=== PATIENT | female | born 1935 | race Caucasian/White ===

== ENCOUNTER 2017-01-19 10:12 | Emergency (ER) | payer MEDICARE ==
[2017-01-19] MEDS ORDERED: ASPIRIN CHEW 81 MG TABLET PO STA (10:28)
[2017-01-19] MEDS ORDERED: ASPIRIN CHEW 81 MG TABLET ONE (10:44)
== END 2017-01-19 11:40 | disposition home or self-care (01) ==
DX: R07.89 Other chest pain (principal); K22.4 Dyskinesia of esophagus; N18.9 Chronic kidney disease, unspecified; I48.92 Unspecified atrial flutter; E03.9 Hypothyroidism, unspecified; Z87.11 Personal history of peptic ulcer disease

== ENCOUNTER 2017-01-24 14:10 | Outpatient (CLI) | payer MEDICARE | END 2017-01-24 14:11 | disposition home or self-care (01) | DX: R82.5 Elevated urine levels of drugs, medicaments and biological substances (principal); R30.0 Dysuria ==

== ENCOUNTER 2017-03-04 11:06 | Outpatient (CLI) | payer MEDICARE ==
--- NOTE | 2017-03-04 15:54 | Ultrasound Report ---
EXAM: PELVIC ULTRASOUND EXAM DATE: 03/04/2017 11:53 AM. CLINICAL HISTORY: POSTMENOPAUSAL ABNORMAL BLEEDING. COMPARISON: None. TECHNIQUE: Realtime transabdominal pelvic scan performed to identify the uterus and adnexa and as an overview of other pelvic structures, followed by transvaginal scan to provide greater detail of the u terus and adnexa, with static image documentation. FINDINGS: Uterus: 7.0 x 4.0 x 2.7 cm, volume 40 cc. Anteverted position. Normal overall size and echotexture. Masses: None. Endometrium: 11 mm. Thickened and heterogeneous. Cervix: Unremarkable. Right Ovary: Not confidently identified. No right adnexal mass is seen. Left Ovary: 3.6 x 2.9 x 2.7 cm, volume 15 cc. There is a 2.3 x 1.9 x 1.8 cm simple cyst. Free Fluid: Trace Other: None. IMPRESSION: Thickened, heterogeneous endometrium for a postmenopausal patient. Correlation with endom etrial biopsy is recommended. Simple 2.3 cm left ovarian cyst. [facility] Referring Provider Line: [phone] SITE ID: [id number]
== END 2017-03-04 11:07 | disposition home or self-care (01) ==
LOC: DI 11:06
PROVIDERS: ATTEND Physician Assistant Medical
DX: R93.8 Abnormal findings on diagnostic imaging of other specified body structures (principal); Z78.0 Asymptomatic menopausal state
CPT/HCPCS: 76830; 76856

== ENCOUNTER 2017-06-21 12:11 | Outpatient (CLI) | payer MEDICARE ==
--- NOTE | 2017-06-21 12:58 | XRAY Report ---
TWO-VIEW CHEST: 06/21/2017 CLINICAL INDICATION: Dyspnea. FINDINGS: Frontal and lateral views of the chest demonstrate a mildly enlarged cardiac silhouette. The lungs are clear. No effusion or pneumothorax is present. IMPRESSION: CARDIOMEGALY, BUT NO EVIDENCE OF ACUTE CARDIOPULMONARY DISEASE. JOB #: [id number] EXT JOB #:[id number]
== END 2017-06-21 12:12 | disposition home or self-care (01) ==
LOC: DI 12:11
PROVIDERS: ATTEND Nurse Practitioner Primary Care
DX: R06.00 Dyspnea, unspecified (principal); I51.7 Cardiomegaly
CPT/HCPCS: 71020

== ENCOUNTER 2017-07-19 14:04 | Outpatient (CLI) | payer MEDICARE ==
[2017-07-23 23:01] LABS: TEST RESULT REPORT
== END 2017-07-19 14:05 | disposition home or self-care (01) ==
LOC: LAB 14:04
PROVIDERS: ATTEND Psychiatry & Neurology Neurology
DX: G70.00 Myasthenia gravis without (acute) exacerbation (principal)
CPT/HCPCS: 81599

== ENCOUNTER 2017-09-15 12:48 | Outpatient (CLI) | payer MEDICARE | END 2017-09-15 12:49 | disposition home or self-care (01) | LOC: LAB 12:48 | PROVIDERS: ATTEND Internal Medicine | DX: E03.9 Hypothyroidism, unspecified (principal) | CPT/HCPCS: 36415; 84443 ==

== ENCOUNTER 2017-11-07 11:29 | Outpatient (CLI) | payer MEDICARE | END 2017-11-07 11:30 | disposition home or self-care (01) | LOC: LAB 11:29 | PROVIDERS: ATTEND Internal Medicine | DX: E03.9 Hypothyroidism, unspecified (principal) | CPT/HCPCS: 36415; 84443 ==

== ENCOUNTER 2018-02-06 08:00 | Outpatient (CLI) | payer MEDICARE | END 2018-02-06 08:01 | disposition home or self-care (01) | LOC: LAB.R 08:00 | PROVIDERS: ATTEND Internal Medicine | DX: E03.9 Hypothyroidism, unspecified (principal) | CPT/HCPCS: 84443 ==

== ENCOUNTER 2018-06-15 10:00 | Outpatient (CLI) | payer MEDICARE ==
[2018-06-15 14:20] LABS: BASOPHILS % (AUTO) 0.7 %; EOSINOPHILS % (AUTO) 1.1 %; LYMPHOCYTES % (AUTO) 33.4 %; MEAN CORPUSCULAR HEMOGLOBIN 29.7 pg (27.0-31.0); MEAN CORPUSCULAR HGB CONC 33.9 g/dL (32.0-36.0); MEAN CORPUSCULAR VOLUME 87.8 fL (81.0-99.0); MEAN PLATELET VOLUME 8.9 fL (7.9-10.8); MONOCYTES % (AUTO) 6.2 %; NEUTROPHILS % (AUTO) 58.6 %; PLT - PLATELET COUNT 716 10^3/uL (130-450); RED BLOOD COUNT 3.37 10^6/uL (4.20-5.40); RED CELL DISTRIBUTION WIDTH 35.1 % (12.0-15.0); WHITE BLOOD COUNT 9.6 x10^3/uL (4.8-10.8)
[2018-06-15 14:23] LABS: ABNORMAL LYMPHS % (MANUAL) 0 %; BAND NEUTROPHILS % (MANUAL) 0 %
[2018-06-15 14:27] LABS: ALBUMIN 3.7 g/dL (3.2-5.5); ALBUMIN/GLOBULIN RATIO 1.7 (1.0-2.2); BILIRUBIN,TOTAL 0.8 mg/dL (0.2-1.0); CALCIUM 8.5 mg/dL (8.5-10.3); CREATININE 1.4 mg/dL (0.4-1.0); TOTAL PROTEIN 5.9 g/dL (6.7-8.2)
[2018-06-15 14:38] LABS: BASOPHILS # (MANUAL) 0.1 10^3/uL (0-0.1); BASOPHILS % (MANUAL) 1 %; EOSINOPHILS # (MANUAL) 0.2 10^3/uL (0-0.7); LYMPHOCYTES # (MANUAL) 0.6 10^3/uL (1.5-3.5); LYMPHOCYTES % (MANUAL) 6 %; MONOCYTES # (MANUAL) 1.2 10^3/uL (0.0-1.0); NEUTROPHILS # (MANUAL) 7.5 10^3/uL (1.5-6.6); NEUTROPHILS % (MANUAL) 78 %
[2018-06-15 14:44] LABS: DIFFERENTIAL COMMENT MANUAL DIFFERENTIAL; PLATELET ESTIMATE, MANUAL INCREASED (>450,000) (NORMAL); PLATELET MORPHOLOGY 1+ GIANT PLATELETS (NORMAL)
== END 2018-06-15 10:01 | disposition home or self-care (01) ==
LOC: LAB.R 10:00
PROVIDERS: ATTEND Nurse Practitioner Primary Care
DX: N76.0 Acute vaginitis (principal); K62.5 Hemorrhage of anus and rectum; Z79.899 Other long term (current) drug therapy
CPT/HCPCS: 80053; 85025; 87070; 87181

== ENCOUNTER 2018-08-20 09:09 | Emergency (ER) | payer MEDICARE ==
[2018-08-20 09:33] VITALS: BP 114/50
--- NOTE | 2018-08-20 10:40 | XRAY Report ---
Reason: injury Procedure Date: 08/20/2018 Accession Number: [id number] / [id number] Procedure: XR - Shoulder 3 View RT CPT Code: FULL RESULT: EXAM: RIGHT SHOULDER RADIOGRAPHY EXAM DATE: 08/20/2018 10:14 AM. CLINICAL HISTORY: Injury. COMPARISON: None. TECHNIQUE: 3 views. FINDINGS: Bones: No fracture or bone lesion. Joints: The glenohumeral and acromioclavicular joints are normal. Soft tissues: The visualized hemithorax is unremarkable. No soft tissue swelling. IMPRESSION: No fracture or dislocation of the right shoulder. [facility]
--- NOTE | 2018-08-20 13:33 | ED Physician Documentation ---
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 : None HEENT: Chronic hearing loss Psych: None Musculoskeletal: None Derm: None - Past Surgical History Past Surgical History: No General: Colonoscopy HEENT: Tonsil/Adenoidectomy, Other - Present Medications Home Medications: Ambulatory Orders Medication Instructions Recorded Confirmed Hydroxyurea [Hydrea] 500 mg PO DAILY 04/19/13 07/11/18 Thyroid,Pork [Nature-Throid] 65 mg PO DAILY 04/19/13 07/11/18 Fish Oil/Borage/Flax/Om3,6,9#1 2,000 mg PO DAILY 02/25/15 07/11/18 [[place] 3-6-9 1,200 mg Softgel] Triamterene/Hydrochlorothiazid 1 cap PO DAILY 02/25/15 07/11/18 [Triamterene-Hctz 37.5-25 mg Cp] - Allergies Allergies/Adverse Reactions: Allergies Allergy/AdvReac Type Severity Reaction Status Date / Time No Known Drug Allergies Allergy Verified 08/20/18 09:33 - Social History Does the pt smoke?: No Smoking Status: Never smoker Does the pt drink ETOH?: Yes Does the pt have substance abuse?: No - Immunizations Immunizations are current?: Yes - POLST Patient has POLST: No PD ED PE NORMAL - Vitals Vital signs reviewed: Yes - HEENT HEENT: Atraumatic - Neck Neck: No bony TTP - Cardiac Cardiac: RRR - Respiratory Respiratory: No respiratory distress, Other (no rib TTP) - Extremities Extremities: Other (TTP lateral superior R shoulder s deformity, pain with ROM, MSV intact) Results - Vitals Vitals: Vital Signs - 24 hr 08/20/18 09:21 Temperature 36.4 C L Heart Rate 84 Respiratory 18 Rate Blood Pressure 114/50 L O2 Saturation 98 Oxygen O2 Source Room air - Rads (name of study) shoulder Radiology: See rad report (no acute) PD MEDICAL DECISION MAKING - ED course ED course: pt happy xrays neg and left without dc instructions Departure - Departure Disposition: 01 Home, Self Care Clinical Impression: Shoulder contusion Qualifiers: Encounter type: initial encounter Laterality: right Qualified Code(s): S40.011A - Contusion of right shoulder, initial encounter Condition: Good Instructions: ED Contusion Shoulder Discharge Date/Time: 08/20/18 11:48
== END 2018-08-20 11:48 | disposition home or self-care (01) ==
LOC: ED 09:09
DX: S40.011A Contusion of right shoulder, initial encounter (principal); W01.0XXA Fall on same level from slipping, tripping and stumbling without subsequent striking against object, initial encounter
CPT/HCPCS: 99282

== ENCOUNTER 2018-09-05 09:48 | Outpatient (CLI) | payer MEDICARE | END 2018-09-05 23:59 | disposition home or self-care (01) | LOC: LAB.R 09:48 | PROVIDERS: ATTEND Nurse Practitioner Primary Care | DX: N30.00 Acute cystitis without hematuria (principal); B37.3 Candidiasis of vulva and vagina | CPT/HCPCS: 87086 ==

== ENCOUNTER 2018-09-15 11:45 | Outpatient (CLI) | payer MEDICARE | END 2018-09-15 11:46 | disposition home or self-care (01) | LOC: LAB 11:45 | PROVIDERS: ATTEND Internal Medicine | DX: N30.00 Acute cystitis without hematuria (principal) | CPT/HCPCS: 87086 ==

== ENCOUNTER 2018-10-05 20:36 | Outpatient (CLI) | payer MEDICARE | END 2018-10-05 20:37 | disposition critical access hospital (66) | LOC: EMS 20:36 | PROVIDERS: ATTEND Surgery | DX: R06.02 Shortness of breath (principal) | CPT/HCPCS: A0425; A0427 ==

== ENCOUNTER 2018-10-05 20:50 | Observation (INO) | payer MEDICARE ==
--- NOTE | 2018-10-05 21:01 | ED Physician Documentation ---
PD HPI DYSPNEA - Stated complaint Stated Complaint: SOA - Chief complaint Chief Complaint: Resp - History obtained from History obtained from: Patient - History of Present Illness Timing - onset: How many hours ago (1) Timing - onset during: Rest Timing - details: Abrupt onset (She was sitting at rest at home and had an abrupt onset of feeling of dyspnea, some pain in her back of her neck and lightheadedness. Her significant other took her heart rate and felt that it was going a little bit fast. She went to rest in bed and does wear BiPAP at night and put that on but did not have any improvement in her dyspnea. EMS was called and found the patient to be tachycardic but irregular rhythm and her oxygenation was 95%. She was starting to feel improved however at that time. She is feeling better on route here and does not have any dyspnea on arrival. She had had a couple of episodes during the day today and one yesterday evening of dyspnea without exertion that lasted for 5-15 minutes according to her friend and then resolved. She felt fine interval times. She does have regular pedal edema during the days and this has been no worse than usual. She has not had any cough or cold symptoms.), Now resolved Inciting event(s): No: Out of meds, URI, Exposure (ie smoke) Improved by: Other (seemed to resolve without particular treatment.). No: BiPAP / CPAP Worsened by: No: Laying flat Associated symptoms: Chest pain / discomfort (tightness, with some discomfort in upper back/neck and not anterior chest.), Bilateral edema (mild daily). No: Fever, Cough, Wheezing, Palpitations Similar symptoms before: Has not had sx before Recently [place] [place] 2 [place]; had had dose the week prior as well. Has had these many times in the past without symptoms.) Review of Systems Constitutional: denies: Fever Nose: denies: Rhinorrhea / runny nose, Congestion Throat: denies: Sore throat Cardiac: reports: Pedal edema (mild daily). denies: Chest pain / pressure, Palpitations, Calf pain Respiratory: reports: Dyspnea (episodic). denies: Cough GI: denies: Abdominal Pain, Nausea, Vomiting, Diarrhea : denies: Dysuria, Frequency Musculoskeletal: denies: Extremity pain Neurologic: reports: Generalized weakness. denies: Focal weakness, Numbness, Near syncope, Altered mental status, Headache PD PAST MEDICAL HISTORY - Past Medical History Cardiovascular: Atrial flutter (with ablation about 5 years ago; no recurrent fib since, per patient. 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 - Past Surgical History Past Surgical History: No General: Colonoscopy HEENT: Tonsil/Adenoidectomy, Other - Present Medications Home Medications: Ambulatory Orders Medication Instructions Recorded Confirmed Hydroxyurea [Hydrea] 500 mg PO DAILY 04/19/13 09/27/18 Thyroid,Pork [Nature-Throid] 65 mg PO DAILY 04/19/13 09/27/18 Fish Oil/Borage/Flax/Om3,6,9#1 2,000 mg PO DAILY 02/25/15 09/27/18 [[place] 3-6-9 1,200 mg Softgel] Triamterene/Hydrochlorothiazid 1 cap PO DAILY 02/25/15 09/27/18 [Triamterene-Hctz 37.5-25 mg Cp] Cyanocobalamin (Vitamin B-12) 1,000 mcg 10/05/18 [Vitamin B-12] Digitek 125 mg PO 10/05/18 Fluconazole 150 mg 10/05/18 Hydroxyurea 500 mg 10/05/18 Nitroglycerin 0.4 mg 10/05/18 Thyroid,Pork [[place] Thyroid] 90 mg 10/05/18 - Allergies Allergies/Adverse Reactions: Allergies Allergy/AdvReac Type Severity Reaction Status Date / Time No Known Drug Allergies Allergy Verified 10/05/18 20:58 - Social History Does the pt smoke?: No Smoking Status: Never smoker Does the pt drink ETOH?: Yes Does the pt have substance abuse?: No - Family History Family history: reports: Non contributory - Immunizations Immunizations are current?: Yes - POLST Patient has POLST: No PD ED PE NORMAL - Vitals Vital signs reviewed: Yes - General General: Alert and oriented X 3, No acute distress, Well developed/nourished - HEENT HEENT: Ears normal, Pharynx benign - Neck Neck: Supple, no meningeal sign, No adenopathy, No JVD - Cardiac Cardiac: RRR, No murmur - Respiratory Respiratory: Clear bilaterally - Abdomen Abdomen: Soft, Non tender - Derm Derm: Normal color, Warm and dry - Extremities Extremities: No deformity, No tenderness to palpate, Normal ROM s pain, No calf tenderness / cord, Other (1+ edema in both legs) - Neuro Neuro: Alert and oriented X 3, 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 No: ST elevation c/w ischemia, ST depression Compare to prior EKG: Unchanged from prior EKG - Labs Labs: Laboratory Tests 10/05/18 10/05/18 10/05/18 21:28 21:28 21:28 WBC 5.5 RBC 2.77 L Hgb 9.1 L Hct 26.3 L MCV 94.9 MCH 32.7 H MCHC 34.5 RDW 26.3 H Plt Count 151 MPV 9.1 Neut # (Auto) Not Reportable Lymph # (Auto) Not Reportable [place] # (Auto) Not Reportable Eos # (Auto) Not Reportable Baso # (Auto) Not Reportable Absolute Nucleated RBC Not Reportable Total Counted 100 Band Neuts % (Manual) 1 Abnorm Lymph % (Manual) 0 Blast Cells % 6 H* Nucleated RBC % Not Reportable Neutrophils # (Manual) 2.8 Lymphocytes # (Manual) 0.6 L Monocytes # (Manual) 1.9 H Eosinophils # (Manual) 0.0 Basophils # (Manual) 0.0 Differential Comment MANUAL DIFFERENTIAL Manual Slide Review Indicated WBC Morphology NORMAL APPEARANCE Platelet Estimate NORMAL (130-450,000) Platelet Morphology NORMAL APPEARANCE RBC Morph Micro Appear 1+ SPHEROCYTES D-Dimer Sodium 139 Potassium 3.7 Chloride 102 Carbon Dioxide 27 Anion Gap 10.0 BUN 29 H Creatinine 1.1 H Estimated GFR (MDRD) 47 L Glucose 112 H Calcium 8.8 Magnesium 2.5 Total Bilirubin 0.7 AST 20 ALT 15 Alkaline Phosphatase 51 Troponin I < 0.04 B-Natriuretic Peptide Total Protein 6.5 L Albumin 3.8 Globulin 2.7 Albumin/Globulin Ratio 1.4 Lipase 66 H Last Dose Date Last Dose Time Digoxin Slides for Path Review Indicated 10/05/18 10/05/18 10/05/18 21:28 21:28 21:28 WBC RBC Hgb Hct MCV MCH MCHC RDW Plt Count MPV Neut # (Auto) Lymph # (Auto) [place] # (Auto) Eos # (Auto) Baso # (Auto) Absolute Nucleated RBC Total Counted Band Neuts % (Manual) Abnorm Lymph % (Manual) Blast Cells % Nucleated RBC % Neutrophils # (Manual) Lymphocytes # (Manual) Monocytes # (Manual) Eosinophils # (Manual) Basophils # (Manual) Differential Comment Manual Slide Review WBC Morphology Platelet Estimate Platelet Morphology RBC Morph Micro Appear D-Dimer < 200.0 L Sodium Potassium Chloride Carbon Dioxide Anion Gap BUN Creatinine Estimated GFR (MDRD) Glucose Calcium Magnesium Total Bilirubin AST ALT Alkaline Phosphatase Troponin I B-Natriuretic Peptide 82 Total Protein Albumin Globulin Albumin/Globulin Ratio Lipase Last Dose Date UNKNOWN Last Dose Time UNKNOWN Digoxin 1.1 Slides for Path Review - Rads (name of study) chest xray Radiology: Prelim report reviewed (no acute process), EMP read contemporaneously, See rad report PD MEDICAL DECISION MAKING - ED course Complexity details: reviewed results (Chest x-ray appeared clear. She did have some dyspnea return here with a slight tachycardia but with sinus rhythm to 103 and no EKG changes on a repeat EKG during the symptoms. She did seem to get some improvement either just on its own or with nitroglycerin. She did not feel improvement with oxygen by nasal cannula though her oxygenation only went down to about 92-93%. Consider the possibility of some pulmonary toxicity related to the Rituxan which does list as a soft potential side effect. However I do not hear any wheezing or crackles. At this point I think heart related is not fully excluded and would asked that she be in the hospital for rule out OH. Referencing up-to-date, there was some suggestion of steroid use if there is some pulmonary inflammation related to the chemo and I could give her a dose of Decadron here. Her d-dimer and initial troponin and BNP are all negative. I talked with the hospitalist who will come and evaluate the patient.), re- evaluated patient, considered differential (Concern for lung related such as pneumonia chronic congestive failure, fluid. Also worried about heart related given abrupt dyspnea with some upper back pain and an older woman that could be atypical presentation for OH. She could have had intermittent dysrhythmia with associated symptoms so we will have her on the heart monitor. Also consider blood clots and can screen with a d-dimer.) Departure - Departure Disposition: ED Place in Observation Clinical Impression: Chest discomfort, Chest pain, rule out acute myocardial infarction Dyspnea Qualifiers: Dyspnea type: shortness of breath Qualified Code(s): R06.02 - Shortness of breath Condition: Stable Record reviewed to determine appropriate education?: Yes
[2018-10-05 21:58] LABS: BASOPHILS % (AUTO) 0.6 %; EOSINOPHILS % (AUTO) 0.7 %; HGB - HEMOGLOBIN 9.1 g/dL (12.0-16.0); LYMPHOCYTES % (AUTO) 20.3 %; MEAN CORPUSCULAR HEMOGLOBIN 32.7 pg (27.0-31.0); MEAN CORPUSCULAR HGB CONC 34.5 g/dL (32.0-36.0); MEAN CORPUSCULAR VOLUME 94.9 fL (81.0-99.0); MEAN PLATELET VOLUME 9.1 fL (7.9-10.8); MONOCYTES % (AUTO) 28.9 %; NEUTROPHILS % (AUTO) 49.5 %; PLT - PLATELET COUNT 151 10^3/uL (130-450); RED BLOOD COUNT 2.77 10^6/uL (4.20-5.40); RED CELL DISTRIBUTION WIDTH 26.3 % (12.0-15.0); WHITE BLOOD COUNT 5.5 x10^3/uL (4.8-10.8)
[2018-10-05 21:59] LABS: ALBUMIN 3.8 g/dL (3.2-5.5); ALBUMIN/GLOBULIN RATIO 1.4 (1.0-2.2); BILIRUBIN,TOTAL 0.7 mg/dL (0.2-1.0); CALCIUM 8.8 mg/dL (8.5-10.3); CREATININE 1.1 mg/dL (0.4-1.0); MAGNESIUM 2.5 mg/dL (1.7-2.8); TOTAL PROTEIN 6.5 g/dL (6.7-8.2)
[2018-10-05 22:02] LABS: ABNORMAL LYMPHS % (MANUAL) 0 %
[2018-10-05] MEDS ORDERED: NITROGLYCERIN SL 0.4 MG TABLET SL STA (22:03)
[2018-10-05 22:23] LABS: DIGOXIN 1.1 ng/mL
[2018-10-05 22:41] LABS: BAND NEUTROPHILS % (MANUAL) 1 %; LYMPHOCYTES # (MANUAL) 0.6 10^3/uL (1.5-3.5); LYMPHOCYTES % (MANUAL) 10 %; MONOCYTES # (MANUAL) 1.9 10^3/uL (0.0-1.0); NEUTROPHILS # (MANUAL) 2.8 10^3/uL (1.5-6.6); NEUTROPHILS % (MANUAL) 49 %
[2018-10-05 22:45] LABS: DIFFERENTIAL COMMENT MANUAL DIFFERENTIAL; PLATELET ESTIMATE, MANUAL NORMAL (130-450,000) (NORMAL); PLATELET MORPHOLOGY NORMAL APPEARANCE (NORMAL)
--- NOTE | 2018-10-05 22:56 | XRAY Report ---
Reason: dyspnea this evening Procedure Date: 10/05/2018 Accession Number: [id number] / [id number] Procedure: XR - Chest 1 View X-Ray CPT Code: 72626 FULL RESULT: EXAM: CHEST RADIOGRAPHY EXAM DATE: 10/05/2018 10:39 PM. CLINICAL HISTORY: Dyspnea this evening. COMPARISON: CHEST 2 VIEW PA/LAT 06/21/2017 12:14 PM. TECHNIQUE: 1 view. FINDINGS: Lungs/Pleura: Scattered mild linear opacities at the right base likely reflects atelectasis. No pneumothorax. No dense confluent consolidation. No pulmonary edema. Mediastinum: Borderline enlarged cardiac silhouette is stable. Other: Redemonstration of elevation of the left hemidiaphragm. IMPRESSION: No acute radiographic pulmonary abnormalities aside from mild right base atelectasis. [facility]
[2018-10-05] MEDS ORDERED: DEXAMETHASONE 10 MG/ML VIAL IVP STA (23:10)
[2018-10-05] MEDS ORDERED: ONDANSETRON 4 MG/2 ML VIAL IVP PRN (23:38)
[2018-10-05] MEDS ORDERED: LEVALBUTEROL 1.25 MG/3 ML NEB INH PRN (23:38)
[2018-10-05] MEDS ORDERED: MORPHINE 2 MG/ML CARPUJECT IVP PRN (23:38)
[2018-10-05] MEDS ORDERED: SODIUM CHLORIDE FLUSH 0.9% 10 ML SYRINGE IVP PRN (23:38)
[2018-10-05] MEDS ORDERED: ZOLPIDEM 5 MG TABLET PO PRN (23:38)
[2018-10-05] MEDS ORDERED: ACETAMINOPHEN 325 MG TABLET PO PRN (23:38)
[2018-10-05] MEDS ORDERED: PROCHLORPERAZINE 10 MG/2 ML VIAL IVP PRN (23:38)
[2018-10-05] MEDS ORDERED: ACETAMINOPHEN 325 MG TABLET PO STA (23:38)
[2018-10-05] MEDS ORDERED: HYDROcod/ACETAM 5/325 MG TABLET PO PRN (23:38)
--- NOTE | 2018-10-05 23:52 | HISTORY & PHYSICAL EXAMINATION ---
Chief Complaint - Chief Complaint Chief Complaint: Shortness of breath History of Present Illness - Admitted From Admitted From:: Emergency department - History Obtained From Records Reviewed: Emergency department records History obtained from: Patient, and Dr. Lorenzo, ED physician Exam Limitations: None - History of Present Illness HPI Comment/Other: Patient is an 83-year-old female with a past medical history significant for atrial fibrillation, myasthenia gravis, thyroid resection on replacement, who has no other known coronary artery disease history or pulmonary disease history and presents with relatively sudden onset of shortness of breath earlier this evening. She does however admit that this has been happening on and off for the last few nights, in similar fashion to tonight which is after she went to bed, she laid down and without any known provocation suddenly became short of breath. She does however recall in retrospect that for the past 1 year she has had a slow and gradual shortness of breath with exertion but nothing like the last few days. She denies any previous history of lung disease, pulmonary embolus, asthma. She did smoke for about 40 years but has not smoked in at least 15 years. She does not have any exposure to secondhand smoke. She denies any infectious symptoms such as cough, purulent mucus, fever, known sick contacts or recent travel. She denies any PE risk factors such as current smoking, estrogen replacement, prolonged immobilization or history of clotting disorders. Dr. Lorenzo ED physician requested I place the patient in observation to rule out acute PA because the patient had apparently told him that he has pain in the left upper back radiating to the left arm. By the time I met with the patient to ask her about this she denies any upper back pain at all and states the only pain she is having is her low back pain which is chronic and a headache which is not unusual for her. She specifically denies any chest pain, neck pain, jaw pain, or radicular arm pain.Next Her initial troponin is negative, she is in sinus rhythm on principal engineer, and her EKG shows no ischemic changes. She is saturating in the mid to high 90s on 2 L of oxygen and was apparently satting in the low 90s on room air upon presentation to the emergency room. Chest x-ray is unremarkable. Her labs are relatively unremarkable with the exception of chronic anemia but she continues to be short of breath. History - Past Medical History Cardiovascular: reports: Atrial fibrillation (with ablation about 5 years ago; no recurrent fib since, per patient. 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 - Past Surgical History General: reports: Colonoscopy HEENT: reports: Tonsil/Adenoidectomy, Other - Family & Social History Family History: Father: CAD Living arrangement: At home Living Situation: Alone Social History [place]: [place] night by an elderly gentleman who appears to be her spouse but he is not. When asked relationship, they smile and simply states that he has a long- term friend who is visiting and is willing to stay with her as long as necessary to make sure she is well enough for him to return home. - Substance History Use: Uses substance without health or social issues: NONE - POLST Patient has POLST: No POLST Status: Full Code Meds/Allgy - Home Medications Home Medications: Ambulatory Orders Medication Instructions Recorded Confirmed Hydroxyurea [Hydrea] 500 mg PO DAILY 04/19/13 09/27/18 Thyroid,Pork [Nature-Throid] 65 mg PO DAILY 04/19/13 09/27/18 Fish Oil/Borage/Flax/Om3,6,9#1 2,000 mg PO DAILY 02/25/15 09/27/18 [[place] 3-6-9 1,200 mg Softgel] Triamterene/Hydrochlorothiazid 1 cap PO DAILY 02/25/15 09/27/18 [Triamterene-Hctz 37.5-25 mg Cp] Cyanocobalamin (Vitamin B-12) 1,000 mcg 10/05/18 [Vitamin B-12] Digitek 125 mg PO 10/05/18 Fluconazole 150 mg 10/05/18 Hydroxyurea 500 mg 10/05/18 Nitroglycerin 0.4 mg 10/05/18 Thyroid,Pork [[place] Thyroid] 90 mg 10/05/18 - Allergies Allergies/Adverse Reactions: Allergies Allergy/AdvReac Type Severity Reaction Status Date / Time No Known Drug Allergies Allergy Verified 10/05/18 20:58 Review of Systems - Constitutional Constitutional: reports: Fatigue. denies: Fever, Chills - Cardiovascular Cariovascular: reports: Decr. exercise tolerance. denies: Irregular heart rate, Palpitations, Chest pain, Lightheadedness - Respiratory Respiratory: reports: Orthopnea, SOB at rest, SOB with exertion. denies: Cough, Sputum production, Wheezing - Gastrointestinal Gastrointestinal: denies: Abdominal pain - Genitourinary Genitourinary: denies: Dysuria - Musculoskeletal Musculoskeletal: reports: Back pain - Neurological Neurological: reports: Headache - All Other Systems All Other Systems: reports: Reviewed and negative Prior Level of Functionality: Independent Exam - Vital Signs Reviewed Vital Signs: Yes Vital Signs: Vital Signs x48h Temp Pulse Resp BP Pulse Ox 10/05/18 22:56 98 23 126/43 L 97 10/05/18 20:53 37.7 C H 107 H 24 140/70 H 95 - Physical Exam General Appearance: positive: No acute distress, Mild distress Eyes Bilateral: positive: Normal inspection ENT: positive: ENT inspection nml Neck: positive: Nml inspection, Other (Surgical incisional scar consistent with Thyroidectomy). negative: Thyromegaly Respiratory: positive: Chest non-tender, Breath sounds nml, Other (Mild tachypnea). negative: No respiratory distress, Wheezes, Rales, Rhonchi Cardiovascular: positive: Regular rate & rhythm, No murmur, No gallop Peripheral Pulses: positive: 2+ Abdomen: positive: Non-tender, No organomegaly, Nml bowel sounds Skin: positive: Color nml Extremities: positive: Nml appearance, No pedal edema Neurologic/Psychiatric: positive: Oriented x3, CN's nml (2-12), Motor nml, Depressed mood/affect Sepsis Event Note (H) - Evaluation Current Stage of Sepsis: Ruled out Conclusion/Plan - Problem List (1) Shortness of breath Conclusion/Plan: Given her normal chest x-ray, labs, including white count and cardiac enzymes, as well as her oxygen saturation and exam findings, I do not have a definitive etiology for her shortness of breath. Her d-dimer makes pulmonary embolus much less likely as does her oxygen saturation. Given the progressive nature of this shortness of breath over the year, and the onset that occurs at night when she lays in bed, and her history of atrial fibrillation or atrial flutter and hi story of ablation, I am suspicious for possible cardiomyopathy or CHF so I will obtain an echocardiogram in the morning. In the meantime, I will try a bronchodilator treatment though it is unclear if this will be effective. We will continue to monitor patient overnight, and pending results possibly may be discharged in 1-2 days. (2) Paroxysmal atrial fibrillation Conclusion/Plan: Patient is in sinus rhythm and rate controlled. Once her dose of digoxin can be confirmed we will resume her home medication. (3) History of myasthenia gravis Conclusion/Plan: She is on Rituxan injections for this and just had one injection 2 weeks ago, it is unclear if this is related. This does not appear to be in exacerbation of myasthenia gravis as she does not complain of weakness in the episodes of shortness of breath appeared to be brief and somewhat fleeting. We will continue to monitor closely as above (4) Paroxysmal atrial flutter Conclusion/Plan: As above, currently sinus rhythm and rate controlled (5) Status post thyroidectomy Conclusion/Plan: Patient has not had a TSH in some time, it is unlikely that this would directly contribute to her shortness of breath without other findings of myxedema however we will check a TSH with morning labs And otherwise continue home medication in the meantime. - Lab Results Lab results reviewed: Yes Brian Bones: 10/05/18 21:28 10/05/18 21:28 - Diagnostic Imaging Results Diagnostic Imaging Results: positive: Prelim report reviewed - EKG Results EKG Interpreted Independently: Yes EKG Comparison: Old EKG unavailable Core Measures - Anticipated LOS I expect patient to be DC'd or transferred within 96 hours.: Yes - DVT/VTE - Prophylaxis VTE/DVT Device ordered at admit?: Yes
[2018-10-06] MEDS: SODIUM CHLORIDE FLUSH 0.9% 10 ML SYRINGE IVP SCH ×2 (01:54→08:09)
[2018-10-06 06:54] LABS: CALCIUM 8.7 mg/dL (8.5-10.3); CREATININE 1.1 mg/dL (0.4-1.0)
[2018-10-06] MEDS ORDERED: NITROGLYCERIN SL 0.4 MG TABLET SL PRN (07:11)
[2018-10-06] MEDS ORDERED: FLUCONAZOLE 150 MG PO SCH (07:15)
[2018-10-06 07:16] LABS: HGB - HEMOGLOBIN 9.1 g/dL (12.0-16.0); MEAN CORPUSCULAR HEMOGLOBIN 32.1 pg (27.0-31.0); MEAN CORPUSCULAR VOLUME 97.4 fL (81.0-99.0); MEAN PLATELET VOLUME 9.1 fL (7.9-10.8); RED BLOOD COUNT 2.83 10^6/uL (4.20-5.40); RED CELL DISTRIBUTION WIDTH 26.4 % (12.0-15.0); WHITE BLOOD COUNT 4.2 x10^3/uL (4.8-10.8)
[2018-10-06] MEDS ORDERED: HYDROXYUREA 500 MG CAPSULE PO SCH (09:00)
[2018-10-06] MEDS ORDERED: POLYETHYLENE GLYCOL 3350 17 GM PACKET PO SCH (09:00)
[2018-10-06] MEDS ORDERED: OMEGA-3 ACID ETHYL ESTERS 1 GM CAPSULE PO SCH (09:00)
[2018-10-06] MEDS ORDERED: TRIAMT/HCTZ 37.5 MG/25 MG CAPSULE PO SCH (09:00)
[2018-10-06] MEDS ORDERED: ENOXAPARIN 40 MG/0.4 ML SYRINGE SUBQ SCH (09:00)
[2018-10-06] MEDS ORDERED: FAMOTIDINE 20 MG TABLET PO SCH (09:00)
[2018-10-06] MEDS ORDERED: ENOXAPARIN 30 MG/0.3 ML SYRINGE SUBQ SCH (09:00)
[2018-10-06] MEDS ORDERED: THYROID 60 MG TABLET PO SCH (11:00)
[2018-10-06 11:30] VITALS: BP 105/68
--- NOTE | 2018-10-06 12:33 | Discharge Plan ---
Discharge Plan Disposition: 01 Home, Self Care Condition: Poor Diet: Regular Activity Restrictions: Activity as Tolerated Shower Restrictions: No (fall precaution) Instruction Topics: Shortness of Breath Control Stress, ED Chest Pain Noncardiac Ch Additional Instructions or Follow Up instructions: you may followup your PCP in one week. Your tests including ECHO, troponin and D-dimer are unremarkable. Should your symptoms return or worsen, you may present ER or call 911 or call your PCP for help. No Smoking: If you smoke, Please STOP! Call for help. Follow-up with: Ardne Jones MD [Primary Care Provider] -
--- NOTE | 2018-10-06 13:08 | DISCHARGE SUMMARY ---
Discharge Summary Discharge Date: 10/06/18 Discharging Provider: WATSON Primary Care Provider: Arden Chandler Condition at Discharge: Stable Discharge Disposition: Home, Self Care Discharge Facility Name: home - DIAGNOSES Admission Diagnoses: (1) Shortness of breath (2) Paroxysmal atrial fibrillation (3) History of myasthenia gravis (4) Paroxysmal atrial flutter (5) Status post thyroidectomy Discharge Diagnoses with Status of Each Condition: (1) Shortness of breath pt report her SOB was resolved when I assessed pt in the morning. pt report she had over year chronic SOB. pt also state she used BiPAP at home for over 5-6 yrs, she followup her pulomonologist at regularly. her D-dimer is less than 200. Pt declined to have CTA of chest due to her reduced kidney function. unfortunately we did not have V/Q scan at hospital in weekend. Pt choose to d/c home. Discuss with pt, should her symptoms return or worsen, present ER or call 911 for help, pt state she will if needed. Likely pt's SOB is related with her myasthenia gravis. Discussed all pt's test result with pt, and answer all her questions. pt's ECHO, serial troponin and D-dimer studies are unremarkable. RT had O2 desat study, pt did not qualify for home O2. pt had O2 sat 92% with room air when she ambulates per RT report. discuss with pt about this finding. pt is comfortably breathing without distress. (2) Paroxysmal atrial fibrillation/Paroxysmal atrial flutter stable, SR, resume home meds digoxin (3) History of myasthenia gravis pt report she followup neurologist in to treat. recommend pt followup closely to assess if her SOB is related with her MG (5) Status post thyroidectomy pt denies palpitation, hot intolerance. pt is stable, followup PCP for pino espinosa. - HPI History of Present Illness: refer from Dr. Newell's HPI for pt as the following: Patient is an 83-year-old female with a past medical history significant for atrial fibrillation, myasthenia gravis, thyroid resection on replacement, who has no other known coronary artery disease history or pulmonary disease history and presents with relatively sudden onset of shortness of breath earlier this evening. She does however admit that this has been happening on and off for the last few nights, in similar fashion to tonight which is after she went to bed, she laid down and without any known provocation suddenly became short of breath. She does however recall in retrospect that for the past 1 year she has had a slow and gradual shortness of breath with exertion but nothing like the last few days. She denies any previous history of lung disease, pulmonary embolus, asthma. She did smoke for about 40 years but has not smoked in at least 15 years. She does not have any exposure to secondhand smoke. She denies any infectious symptoms such as cough, purulent mucus, fever, known sick contacts or recent travel. She denies any PE risk factors such as current smoking, estrogen replacement, prolonged immobilization or history of clotting disorders. Dr. Lorenzo ED physician requested I place the patient in observation to rule out acute OK because the patient had apparently told him that he has pain in the left upper back radiating to the left arm. By the time I met with the patient to ask her about this she denies any upper back pain at all and states the only pain she is having is her low back pain which is chronic and a headache which is not unusual for her. She specifically denies any chest pain, neck pain, jaw pain, or radicular arm pain.Next Her initial troponin is negative, she is in sinus rhythm on nuclear monitoring technician, and her EKG shows no ischemic changes. She is saturating in the mid to high 90s on 2 L of oxygen and was apparently satting in the low 90s on room air upon presentation to the emergency room. Chest x-ray is unremarkable. Her labs are relatively unremarkable with the exception of chronic anemia but she continues to be short of breath. - HOSPITAL COURSE Hospital Course: pt was admitted of SOB. pt report her SOB was resolved when I assessed pt in the morning. discuss with pt about the possibility if she has PE. pt report she had over year chronic SOB. D-dimer is less than 200. she decline to have contrast of CT of chest to R/O PE because of her reduced kidney function. We do not have V/Q scan at weekend in this hospital. pt report she has bee SOB for over year. Likely pt's SOB is related with her myasthenia gravis. recommend pt followup her neurologist closely to assess if her SOB is related with her MG. Also discuss with pt, should your symptoms return or worsen, you may present ER or call 911 or call your PCP for help. - ALLERGIES Allergies/Adverse Reactions: Allergies Allergy/AdvReac Type Severity Reaction Status Date / Time No Known Drug Allergies Allergy Verified 10/05/18 20:58 - MEDICATIONS Home Medications: Ambulatory Orders Medication Instructions Recorded Confirmed Hydroxyurea [Hydrea] 500 mg PO SUMOTUWETHSA 04/19/13 10/06/18 Triamterene/Hydrochlorothiazid 1 cap PO DAILY 02/25/15 10/06/18 [Triamterene-Hctz 37.5-25 mg Cp] Digoxin [Lanoxin] 125 mcg PO QPM 10/05/18 10/06/18 Nitroglycerin 0.4 mg SL Q5M PRN 10/05/18 10/06/18 Thyroid,Pork [[place] Thyroid] 90 mg PO DAILY 10/05/18 10/06/18 Cyanocobalamin (Vitamin B-12) 1,000 mcg IM Q28D 10/06/18 10/06/18 [Cyanocobalamin Injection] [place]-3 Fatty Acids/Fish Oil 1,000 mg PO DAILY 10/06/18 10/06/18 [[place]-3 Fish Oil 1,000 mg Sfgl] - PHYSICAL EXAM AT DISCHARGE General Appearance: positive: No acute distress, Alert. negative: Lethargic Eyes Bilateral: positive: Normal inspection, PERRL, No lid inflammation, Conjunctivae nml ENT: positive: ENT inspection nml, Pharynx nml, No signs of dehydration. negative: Purulent nasal drainage, Pharyngeal erythema, Oral lesions Neck: positive: Nml inspection, Thyroid nml, No JVD, Trachea midline. negative: Thyromegaly, Lymphadenopathy (R), Lymphadenopathy (L), Stiff neck, Swelling/bruising, Tracheal deviation Respiratory: positive: Chest non-tender, No respiratory distress, Breath sounds nml. negative: Wheezes, Rales, Rhonchi Cardiovascular: positive: Regular rate & rhythm, No murmur, No gallop. negative: Irregularly irregular, Extrasystoles, Tachycardia, Bradycardia, JVD present, Systolic murmur, Diastolic murmur Peripheral Pulses: positive: 2+ Abdomen: positive: Non-tender, No organomegaly, Nml bowel sounds, No distention. negative: Tenderness, Guarding, Rebound Back: positive: Nml inspection. negative: CVA tenderness (R), CVA tenderness (L) Skin: positive: Color nml, No rash, Warm, Dry. negative: Cyanosis, Diaphoresis, Pallor Extremities: positive: Non-tender, Full ROM, Nml appearance. negative: Calf tenderness, Joint swelling, Susie's sign/cords Neurologic/Psychiatric: positive: Oriented x3, Motor nml, Sensation nml, Mood/affect nml. negative: Weakness, Sensory loss, Facial droop, Slurred/abnml speech, Depressed mood/affect - LABS Result Diagrams: 10/06/18 06:34 10/06/18 06:34 - SEPSIS Current Stage of Sepsis: Ruled out - FOLLOW UP Follow Up: you may followup your PCP in one week. You may followup your intensivist for sleep study, neurologist for myasthenia gravis study as out-pt. Your tests including ECHO, troponin and D-dimer are unremarkable. Should your symptoms return or worsen, you may present ER or call 911 or call your PCP for help. - TIME SPENT Time Spent in Discharge (Minutes): 60
== END 2018-10-06 14:05 | disposition home or self-care (01) ==
LOC: EDUNIT# → ED 20:50 → OBS 23:38
PROVIDERS: ADMIT Family Medicine Sports Medicine; ATTEND Nurse Practitioner Gerontology
DX: R06.02 Shortness of breath (principal); I48.0 Paroxysmal atrial fibrillation; G70.00 Myasthenia gravis without (acute) exacerbation; I48.92 Unspecified atrial flutter; D64.9 Anemia, unspecified; G89.29 Other chronic pain; M54.5 Low back pain; E89.0 Postprocedural hypothyroidism; H91.90 Unspecified hearing loss, unspecified ear; Z79.899 Other long term (current) drug therapy; Z87.891 Personal history of nicotine dependence; Z86.79 Personal history of other diseases of the circulatory system
CPT/HCPCS: 36415; 71045; 80048; 80053; 80162; 83690; 83735; 83880; 84484; 85025; 85027; 85379; 93005; 93306; 96372; 96374; 99284; A9270; G0378; J1650

== ENCOUNTER 2018-10-21 19:26 | Outpatient (CLI) | payer MEDICARE | END 2018-10-21 19:27 | disposition critical access hospital (66) | LOC: EMS 19:26 | PROVIDERS: ATTEND Surgery | DX: R06.02 Shortness of breath (principal); R15.9 Full incontinence of feces | CPT/HCPCS: A0425; A0427 ==

== ENCOUNTER 2018-10-21 19:42 | Emergency (ER) | payer MEDICARE ==
[2018-10-21] MEDS ORDERED: ASPIRIN CHEW 81 MG TABLET PO STA (20:20)
[2018-10-21] MEDS ORDERED: IPRATROPIUM/ALBUTEROL 3 ML NEB INH STA (20:22)
[2018-10-21 20:40] LABS: EOSINOPHILS % (AUTO) 0.2 %; HGB - HEMOGLOBIN 8.5 g/dL (12.0-16.0); LYMPHOCYTES % (AUTO) 16.7 %; MEAN CORPUSCULAR HEMOGLOBIN 32.1 pg (27.0-31.0); MEAN CORPUSCULAR HGB CONC 33.4 g/dL (32.0-36.0); MEAN CORPUSCULAR VOLUME 96.1 fL (81.0-99.0); MEAN PLATELET VOLUME 10.1 fL (7.9-10.8); MONOCYTES % (AUTO) 59.9 %; NEUTROPHILS % (AUTO) 23.2 %; PLT - PLATELET COUNT 114 10^3/uL (130-450); RED BLOOD COUNT 2.64 10^6/uL (4.20-5.40); RED CELL DISTRIBUTION WIDTH 25.4 % (12.0-15.0); WHITE BLOOD COUNT 4.2 x10^3/uL (4.8-10.8)
[2018-10-21 20:45] LABS: ABNORMAL LYMPHS % (MANUAL) 0 %; BAND NEUTROPHILS % (MANUAL) 0 %
[2018-10-21 20:51] LABS: ALBUMIN 3.9 g/dL (3.2-5.5); ALBUMIN/GLOBULIN RATIO 1.4 (1.0-2.2); BILIRUBIN,TOTAL 0.9 mg/dL (0.2-1.0); CALCIUM 9.1 mg/dL (8.5-10.3); TOTAL PROTEIN 6.6 g/dL (6.7-8.2)
[2018-10-21 20:53] LABS: DIGOXIN 0.6 ng/mL
[2018-10-21 20:59] LABS: LYMPHOCYTES # (MANUAL) 0.3 10^3/uL (1.5-3.5); LYMPHOCYTES % (MANUAL) 7 %; MONOCYTES # (MANUAL) 2.1 10^3/uL (0.0-1.0); NEUTROPHILS # (MANUAL) 1.8 10^3/uL (1.5-6.6); NEUTROPHILS % (MANUAL) 42 %; PLATELET MORPHOLOGY RARE GIANT PLATELETS (NORMAL)
[2018-10-21 21:00] LABS: DIFFERENTIAL COMMENT MANUAL DIFFERENTIAL; PLATELET ESTIMATE, MANUAL DECREASED (<130,000) (NORMAL)
--- NOTE | 2018-10-21 21:36 | XRAY Report ---
Reason: SOA Procedure Date: 10/21/2018 Accession Number: [id number] / [id number] Procedure: XR - Chest 2 View X-Ray CPT Code: 19574 FULL RESULT: EXAM: CHEST RADIOGRAPHY EXAM DATE: 10/21/2018 08:56 PM. CLINICAL HISTORY: Dyspnea COMPARISON: CHEST 1 VIEW 10/05/2018 10:14 PM. TECHNIQUE: 2 views. FINDINGS: Lungs/Pleura: There is opacity within the right lung base. There is costophrenic sulcus blunting. There is no evidence of pneumothorax. Mediastinum: There is cardiomegaly. There is thoracic aortic calcification. Other: None. IMPRESSION: 1. There is cardiomegaly. 2. There is increased opacity within the right lung base. This could represent infiltrate. 3. Costophrenic sulcus blunting is suspicious for small effusions. 4. There is no evidence of pneumothorax. RADIA
[2018-10-21] MEDS ORDERED: AZITHROMYCIN 250 MG TABLET PO STA (21:54)
[2018-10-21 22:02] VITALS: BP 104/54
--- NOTE | 2018-10-21 22:09 | ED Physician Documentation ---
PD HPI DYSPNEA - Stated complaint Stated Complaint: SOA - Chief complaint Chief Complaint: Resp - History obtained from History obtained from: Patient - History of Present Illness Timing - onset: How many hours ago (1) Timing - onset during: Other (Laying down) Timing - duration: Minutes (30) Timing - details: Abrupt onset Pain level max: 0 Pain level now: 0 Inciting event(s): Other (Laying down) Improved by: O2, Inhaler/neb Worsened by: Laying flat Associated symptoms: No: Fever, Cough, Hemoptysis, Chest pain / discomfort Similar symptoms before: Other (Admitted 2 weeks ago for chest pain ruleout) - Additional information Additional information: 83-year-old female with history of myasthenia gravis on rituximab presents with dyspnea when laying flat. Patient states that she has significant relief with supplemental oxygen. Review of Systems Constitutional: reports: Reviewed and negative Eyes: reports: Reviewed and negative Ears: reports: Reviewed and negative Nose: reports: Reviewed and negative Throat: reports: Reviewed and negative Cardiac: reports: Reviewed and negative Respiratory: reports: Reviewed and negative GI: reports: Reviewed and negative : reports: Reviewed and negative Skin: reports: Reviewed and negative Musculoskeletal: reports: Reviewed and negative Neurologic: reports: Reviewed and negative Psychiatric: reports: Reviewed and negative Endocrine: reports: Reviewed and negative Immunocompromised: reports: Reviewed and negative PD PAST MEDICAL HISTORY - Past Medical History Cardiovascular: Atrial fibrillation, Other Respiratory: Shortness of breath Neuro: None Endocrine/Autoimmune: HyPOthyroidism GI: Ulcers HOME HEALTH CAREGIVER: None : None HEENT: Chronic hearing loss Psych: None Musculoskeletal: None Derm: None - Past Surgical History Past Surgical History: No General: Colonoscopy HEENT: Tonsil/Adenoidectomy, Other - Present Medications Home Medications: Ambulatory Orders Medication Instructions Recorded Confirmed Hydroxyurea [Hydrea] 500 mg PO SUMOTUWETHSA 04/19/13 10/21/18 Triamterene/Hydrochlorothiazid 1 cap PO DAILY 02/25/15 10/21/18 [Triamterene-Hctz 37.5-25 mg Cp] Digoxin [Lanoxin] 125 mcg PO QPM 10/05/18 10/21/18 Nitroglycerin 0.4 mg SL Q5M PRN 10/05/18 10/21/18 Thyroid,Pork [[place] Thyroid] 90 mg PO DAILY 10/05/18 10/21/18 Cyanocobalamin (Vitamin B-12) 1,000 mcg IM Q28D 10/06/18 10/21/18 [Cyanocobalamin Injection] [place] [employer]-3 Fatty Acids/Fish Oil 1,000 mg PO DAILY 10/06/18 10/21/18 [[place] [employer] Fish Oil 1,000 mg Sfgl] Albuterol Sulfate [Proair 90 mcg IH Q4HR PRN #1 aer.pow.[email or web address] 10/21/18 Respiclick] Azithromycin [Zithromax] 0 mg PO DAILY #6 tablet 10/21/18 Cefdinir 300 mg PO BID #14 capsule 10/21/18 - Allergies Allergies/Adverse Reactions: Allergies Allergy/AdvReac Type Severity Reaction Status Date / Time No Known Drug Allergies Allergy Verified 10/21/18 19:52 - Living Situation Living Situation: reports: Alone Living Arrangement: reports: At home - Social History Does the pt smoke?: No Smoking Status: Never smoker Does the pt drink ETOH?: Yes Does the pt have substance abuse?: No - Family History Family history: reports: Other (Reviewed and not pertinent) - Immunizations Immunizations are current?: Yes - POLST Patient has POLST: No POLST Status: Full Code PD ED PE NORMAL - Vitals Vital signs reviewed: Yes - General General: Alert and oriented X 3, No acute distress - HEENT HEENT: PERRL - Neck Neck: Supple, no meningeal sign - Cardiac Cardiac: RRR, No murmur - Respiratory Respiratory: Other (Expiratory wheezes bilaterally) - Abdomen Abdomen: Normal bowel sounds, Soft, Non tender, Non distended - Derm Derm: Warm and dry - Extremities Extremities: No deformity - Neuro Neuro: Alert and oriented X 3 - Psych Psych: Normal mood, Normal affect Results - Vitals Vitals: Vital Signs - 24 hr 10/21/18 10/21/18 10/21/18 19:46 19:53 20:39 Temperature 36.5 C Heart Rate 118 H 121 H 104 H Respiratory 22 20 20 Rate Blood Pressure 141/75 H 132/68 H O2 Saturation 95 95 100 10/21/18 10/21/18 21:44 22:02 Temperature Heart Rate 109 H 109 H Respiratory 18 20 Rate Blood Pressure 125/58 L 104/54 L O2 Saturation 95 95 Oxygen O2 Source Room air - EKG (time done) 2027 Rate: Rate (enter#) (112) Rhythm: Sinus tachycardia [place]: Normal Intervals: Normal VT QRS: Normal Ischemia: Normal ST segments. No: T wave inversion - Labs Labs: Laboratory Tests 10/21/18 10/21/18 10/21/18 20:30 20:30 20:30 WBC 4.2 L RBC 2.64 L Hgb 8.5 L Hct 25.3 L MCV 96.1 MCH 32.1 H MCHC 33.4 RDW 25.4 H Plt Count 114 L MPV 10.1 Neut # (Auto) Not Reportable Lymph # (Auto) Not Reportable Clarke # (Auto) Not Reportable Eos # (Auto) Not Reportable Baso # (Auto) Not Reportable Absolute Nucleated RBC Not Reportable Total Counted 100 Band Neuts % (Manual) 0 Abnorm Lymph % (Manual) 0 Nucleated RBC % Not Reportable Neutrophils # (Manual) 1.8 Lymphocytes # (Manual) 0.3 L Monocytes # (Manual) 2.1 H Eosinophils # (Manual) 0.0 Basophils # (Manual) 0.0 Differential Comment MANUAL DIFFERENTIAL Manual Slide Review Indicated Platelet Estimate DECREASED (<130,000) Platelet Morphology RARE GIANT PLATELETS RBC Morph Micro Appear 2+ SCHISTOCYTES D-Dimer Sodium 138 Potassium 3.6 Chloride 102 Carbon Dioxide 25 Anion Gap 11.0 BUN 27 H Creatinine 1.0 Estimated GFR (MDRD) 53 L Glucose 128 H Calcium 9.1 Total Bilirubin 0.9 AST 19 ALT 14 Alkaline Phosphatase 50 Troponin I < 0.04 B-Natriuretic Peptide Total Protein 6.6 L Albumin 3.9 Globulin 2.7 Albumin/Globulin Ratio 1.4 Lipase 46 Last Dose Date Last Dose Time Digoxin Influenza A (Rapid) Influenza B (Rapid) 10/21/18 10/21/18 10/21/18 20:30 20:30 20:30 WBC RBC Hgb Hct MCV MCH MCHC RDW Plt Count MPV Neut # (Auto) Lymph # (Auto) Clarke # (Auto) Eos # (Auto) Baso # (Auto) Absolute Nucleated RBC Total Counted Band Neuts % (Manual) Abnorm Lymph % (Manual) Nucleated RBC % Neutrophils # (Manual) Lymphocytes # (Manual) Monocytes # (Manual) Eosinophils # (Manual) Basophils # (Manual) Differential Comment Manual Slide Review Platelet Estimate Platelet Morphology RBC Morph Micro Appear D-Dimer 200.0 Sodium Potassium Chloride Carbon Dioxide Anion Gap BUN Creatinine Estimated GFR (MDRD) Glucose Calcium Total Bilirubin AST ALT Alkaline Phosphatase Troponin I B-Natriuretic Peptide 68 Total Protein Albumin Globulin Albumin/Globulin Ratio Lipase Last Dose Date Last Dose Time Digoxin Influenza A (Rapid) Negative Influenza B (Rapid) Negative 10/21/18 20:30 WBC RBC Hgb Hct MCV MCH MCHC RDW Plt Count MPV Neut # (Auto) Lymph # (Auto) Clarke # (Auto) Eos # (Auto) Baso # (Auto) Absolute Nucleated RBC Total Counted Band Neuts % (Manual) Abnorm Lymph % (Manual) Nucleated RBC % Neutrophils # (Manual) Lymphocytes # (Manual) Monocytes # (Manual) Eosinophils # (Manual) Basophils # (Manual) Differential Comment Manual Slide Review Platelet Estimate Platelet Morphology RBC Morph Micro Appear D-Dimer Sodium Potassium Chloride Carbon Dioxide Anion Gap BUN Creatinine Estimated GFR (MDRD) Glucose Calcium Total Bilirubin AST ALT Alkaline Phosphatase Troponin I B-Natriuretic Peptide Total Protein Albumin Globulin Albumin/Globulin Ratio Lipase Last Dose Date UNKNOWN Last Dose Time UNKNOWN Digoxin 0.6 Influenza A (Rapid) Influenza B (Rapid) - Rads (name of study) Chest Xray Radiology: Final report received (Right lower lobe consolidate, bilateral trace pleural effusions, cardiomegaly.) PD MEDICAL DECISION MAKING - ED course ED course: 83-year-old female with history of myasthenia gravis on rituximab presents with dyspnea when laying flat. Patient states that she has significant relief with supplemental oxygen. Patient is tachycardic with normal oxygen saturation. Wheezes on exam that cleared with DuoNeb. Bedside ultrasound revealed B-lines in the bilateral lower lung earl. Chest x-ray showed right lower lobe infiltrate with bilateral small pleural effusions. Labs today and on prior visit showed anemia with schistocytes concerning for hemolytic anemia. BNP was within normal limits and recent echo showed mild diastolic dysfunction.D-dimer was negative.Patient strongly wishes to discharge home for her neurology appointment tomorrow morning. Vital signs within normal limits except for mild tachycardia.Digoxin level is somewhat low but patient has not taken her evening dose for approximately 24 hours.Patient given dose of azithromycin but steroids are deferred as patient is on rituximab.Patient discharged with prescription for azithromycin, cefdinir, albuterol. Patient to follow-up with neurology and primary care regarding hemolytic anemia, wheezing, cardiomegaly and diastolic dysfunction for further workup and also consideration of rituximab side effects.I did speak with respiratory therapist regarding pulmonary function testing for possible myasthenic crisis but this is not available at night. Patient does deny any generalized weakness and shows no lid lag or ptosis. Myasthenic crisis is less likely. 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 Take antibiotics and inhaler as prescribed. Return with worsening symptoms. Follow up with your neurologist regarding possible Rituxan side effects: -Wheezing -Cardiolomegaly and Diastolic dysfuntion -Pleural effusions -Hemolytic anemia Follow up with Dr. Jones regarding: -Possible pneumonia -Wheezing -Cardiomegaly and Diastolic dysfunction -Pleural effusions -Hemolytic anemia (schystocytes and low hemoglobin)
== END 2018-10-21 22:30 | disposition home or self-care (01) ==
LOC: EDUNIT# → ED 19:42
DX: J90 Pleural effusion, not elsewhere classified (principal); R00.0 Tachycardia, unspecified; J18.1 Lobar pneumonia, unspecified organism; R06.00 Dyspnea, unspecified; D59.9 Acquired hemolytic anemia, unspecified; G70.00 Myasthenia gravis without (acute) exacerbation; E03.9 Hypothyroidism, unspecified
CPT/HCPCS: 36415; 71046; 80053; 80162; 83690; 83880; 84484; 85025; 85379; 87275; 87276; 93005; 94640; 99284; A9270

== ENCOUNTER 2018-11-08 21:16 | Outpatient (CLI) | payer MEDICARE | END 2018-11-08 21:17 | disposition critical access hospital (66) | LOC: EMS 21:16 | PROVIDERS: ATTEND Surgery | DX: R06.00 Dyspnea, unspecified (principal) | CPT/HCPCS: A0425; A0429 ==

== ENCOUNTER 2018-11-08 21:35 | Observation (INO) | payer MEDICARE ==
--- NOTE | 2018-11-08 21:49 | ED Physician Documentation ---
PD HPI DYSPNEA - Stated complaint Stated Complaint: SOA - Chief complaint Chief Complaint: Resp - History obtained from History obtained from: Patient - History of Present Illness Timing - onset: Today (this evening after eating dinner) Timing - onset during: Rest Timing - details: Gradual onset, Still present Improved by: Rest Worsened by: Exertion Associated symptoms: No: Fever, Cough, Wheezing, Chest pain / discomfort, Palpitations, Diaphoresis, Bilateral edema, Unilateral edema Similar symptoms before: No diagnosis (T+R last month for similar symptoms, possible early infiltrate on CXR and thus given/rx azithromycin) Recently seen: Emergency Dept - Additional information Additional information: c/o dyspnea since earlier tonight shortly after finishing dinner. she denies having any pulmonary problems/diagnoses, does not use oxygen at home. Denies chest pain. T+R for similar symptoms last month from this ED, rx zithromax for possible early pneumonia on CXR; patient says she took the antibiotic as prescribed and symptoms resolved until tonight Review of Systems Constitutional: reports: Fatigue. denies: Fever, Chills, Myalgias, Sweats Eyes: reports: Reviewed and negative Ears: reports: Reviewed and negative Nose: reports: Reviewed and negative Throat: reports: Reviewed and negative Cardiac: reports: Reviewed and negative Respiratory: reports: Dyspnea. denies: Cough, Hemoptysis, Wheezing GI: reports: Reviewed and negative : denies: Dysuria, Frequency Skin: reports: Reviewed and negative Musculoskeletal: reports: Reviewed and negative Neurologic: reports: Reviewed and negative PD PAST MEDICAL HISTORY - Past Medical History Past Medical History: Yes Cardiovascular: Atrial fibrillation, Other Respiratory: Shortness of breath Neuro: None Endocrine/Autoimmune: HyPOthyroidism GI: None FUR TINTER: None : None HEENT: Chronic hearing loss Psych: None Musculoskeletal: None Derm: None - Past Surgical History Past Surgical History: No General: Colonoscopy HEENT: Tonsil/Adenoidectomy, Other - Present Medications Home Medications: Ambulatory Orders Medication Instructions Recorded Confirmed Hydroxyurea [Hydrea] 500 mg PO SUMOTUWETHSA 04/19/13 11/08/18 Triamterene/Hydrochlorothiazid 1 cap PO DAILY 02/25/15 11/08/18 [Triamterene-Hctz 37.5-25 mg Cp] Digoxin [Lanoxin] 125 mcg PO QPM 10/05/18 11/08/18 Nitroglycerin 0.4 mg SL Q5M PRN 10/05/18 11/08/18 Thyroid,Pork [[place] Thyroid] 90 mg PO DAILY 10/05/18 11/08/18 Cyanocobalamin (Vitamin B-12) 1,000 mcg IM Q28D 10/06/18 11/08/18 [Cyanocobalamin Injection] Cascade-3 Fatty Acids/Fish Oil 1,000 mg PO DAILY 10/06/18 11/08/18 [Cascade-3 Fish Oil 1,000 mg Sfgl] - Allergies Allergies/Adverse Reactions: Allergies Allergy/AdvReac Type Severity Reaction Status Date / Time No Known Drug Allergies Allergy Verified 10/21/18 19:52 - Social History Does the pt smoke?: No Smoking Status: Never smoker Does the pt drink ETOH?: Yes Does the pt have substance abuse?: No - Immunizations Immunizations are current?: Yes - POLST Patient has POLST: No POLST Status: Full Code PD ED PE NORMAL - Vitals Vital signs reviewed: Yes - General General: Alert and oriented X 3, No acute distress, Well developed/nourished - HEENT HEENT: Moist mucous membranes - Neck Neck: Supple, no meningeal sign - Cardiac Cardiac: RRR, No gallop, No rub - Respiratory Respiratory: No respiratory distress, Clear bilaterally - Abdomen Abdomen: Normal bowel sounds, Soft, Non tender, Non distended - Back Back: No CVA TTP - Derm Derm: Normal color, Warm and dry - Extremities Extremities: No edema - Neuro Neuro: Alert and oriented X 3 PD ED PE EXPANDED - Cardiac Cardiac: Murmur Present (3/6 ALEX limited to right 2nd ICS (patient says this is not new)) Results - Vitals Vitals: Vital Signs - 24 hr 11/08/18 11/08/18 11/08/18 21:32 21:44 22:38 Temperature 37.4 C Heart Rate 129 H 128 H 131 H Respiratory 22 21 Rate Blood Pressure 88/47 L 142/63 H O2 Saturation 94 96 82 L 11/08/18 11/08/18 11/08/18 22:40 23:07 23:28 Temperature Heart Rate 126 H 119 H 122 H Respiratory 24 17 24 Rate Blood Pressure 142/62 H 134/60 H O2 Saturation 96 98 97 11/09/18 11/09/18 01:31 01:58 Temperature 37.8 C H Heart Rate 122 H 109 H Respiratory 18 28 H Rate Blood Pressure 134/58 H 106/52 L O2 Saturation 96 Oxygen O2 Source Room air Oxygen Flow Rate 2 - EKG (time done) No standard instances Rate: Rate (enter#) (128) Rhythm: Sinus tachycardia [place]: Normal Intervals: Normal [place] QRS: Normal Ischemia: Normal ST segments Other comments: Other comments (RSR' V1 V2) Compare to prior EKG: Unchanged from prior EKG (10/21/18) - Labs Labs: Laboratory Tests 11/08/18 11/08/18 11/08/18 22:16 22:16 22:16 WBC 4.4 L RBC 2.25 L Hgb 7.2 L Hct 21.6 L MCV 96.1 MCH 31.8 H MCHC 33.1 RDW 25.7 H Plt Count 109 L MPV 10.0 Neut # (Auto) Not Reportable Lymph # (Auto) Not Reportable Phillips # (Auto) Not Reportable Eos # (Auto) Not Reportable Baso # (Auto) Not Reportable Absolute Nucleated RBC Not Reportable Total Counted 100 Band Neuts % (Manual) 1 Abnorm Lymph % (Manual) 0 Metamyelocytes % 5 H Myelocytes % 3 H Promyelocytes % 1 H Nucleated RBC % Not Reportable Neutrophils # (Manual) 0.3 L* Lymphocytes # (Manual) 1.2 L Monocytes # (Manual) 2.5 H Eosinophils # (Manual) 0.0 Basophils # (Manual) 0.0 Differential Comment MANUAL DIFFERENTIAL Manual Slide Review Indicated Platelet Estimate DECREASED (<130,000) Platelet Morphology NORMAL PARTH RBC Morph Micro Appear 1+ JUWAN CELLS Sodium 138 Potassium 3.7 Chloride 102 Carbon Dioxide 25 Anion Gap 11.0 BUN 37 H Creatinine 1.1 H Estimated GFR (MDRD) 47 L Glucose 121 H Lactic Acid Calcium 9.1 Total Bilirubin 0.9 AST 21 ALT 18 Alkaline Phosphatase 53 Troponin I < 0.04 B-Natriuretic Peptide Total Protein 7.2 Albumin 4.1 Globulin 3.1 Albumin/Globulin Ratio 1.3 Lipase 58 H TSH Blood Type Blood Type Recheck Antibody Screen Crossmatch IS Only 11/08/18 11/08/18 11/08/18 22:16 22:16 23:00 WBC RBC Hgb Hct MCV MCH MCHC RDW Plt Count MPV Neut # (Auto) Lymph # (Auto) Phillips # (Auto) Eos # (Auto) Baso # (Auto) Absolute Nucleated RBC Total Counted Band Neuts % (Manual) Abnorm Lymph % (Manual) Metamyelocytes % Myelocytes % Promyelocytes % Nucleated RBC % Neutrophils # (Manual) Lymphocytes # (Manual) Monocytes # (Manual) Eosinophils # (Manual) Basophils # (Manual) Differential Comment Manual Slide Review Platelet Estimate Platelet Morphology RBC Morph Micro Appear Sodium Potassium Chloride Carbon Dioxide Anion Gap BUN Creatinine Estimated GFR (MDRD) Glucose Lactic Acid Calcium Total Bilirubin AST ALT Alkaline Phosphatase Troponin I B-Natriuretic Peptide 49 Total Protein Albumin Globulin Albumin/Globulin Ratio Lipase TSH 2.70 Blood Type Blood Type Recheck A POSITIVE Antibody Screen Crossmatch IS Only 11/08/18 11/08/18 23:35 23:50 WBC RBC Hgb Hct MCV MCH MCHC RDW Plt Count MPV Neut # (Auto) Lymph # (Auto) Phillips # (Auto) Eos # (Auto) Baso # (Auto) Absolute Nucleated RBC Total Counted Band Neuts % (Manual) Abnorm Lymph % (Manual) Metamyelocytes % Myelocytes % Promyelocytes % Nucleated RBC % Neutrophils # (Manual) Lymphocytes # (Manual) Monocytes # (Manual) Eosinophils # (Manual) Basophils # (Manual) Differential Comment Manual Slide Review Platelet Estimate Platelet Morphology RBC Morph Micro Appear Sodium Potassium Chloride Carbon Dioxide Anion Gap BUN Creatinine Estimated GFR (MDRD) Glucose Lactic Acid 0.7 Calcium Total Bilirubin AST ALT Alkaline Phosphatase Troponin I B-Natriuretic Peptide Total Protein Albumin Globulin Albumin/Globulin Ratio Lipase TSH Blood Type A POSITIVE Blood Type Recheck Antibody Screen NEGATIVE Crossmatch IS Only See Detail - Rads (name of study) chest xray Radiology: Prelim report reviewed, See rad report PD MEDICAL DECISION MAKING - ED course Complexity details: reviewed results, re-evaluated patient, considered differential, d/w patient ED course: significant anemia as part of apparently new-onset pancytopenia (including a low ANC). Will transfuse PRBC and admit Departure - Departure Disposition: ED Place in Observation Clinical Impression: Pancytopenia, Shortness of breath Condition: Stable Discharge Date/Time: 11/09/18 02:44
[2018-11-08 22:29] LABS: BASOPHILS % (AUTO) 0.1 %; EOSINOPHILS % (AUTO) 0.5 %; HGB - HEMOGLOBIN 7.2 g/dL (12.0-16.0); LYMPHOCYTES % (AUTO) 18.1 %; MEAN CORPUSCULAR HEMOGLOBIN 31.8 pg (27.0-31.0); MEAN CORPUSCULAR HGB CONC 33.1 g/dL (32.0-36.0); MEAN CORPUSCULAR VOLUME 96.1 fL (81.0-99.0); MONOCYTES % (AUTO) 67.6 %; NEUTROPHILS % (AUTO) 13.7 %; PLT - PLATELET COUNT 109 10^3/uL (130-450); RED BLOOD COUNT 2.25 10^6/uL (4.20-5.40); RED CELL DISTRIBUTION WIDTH 25.7 % (12.0-15.0); WHITE BLOOD COUNT 4.4 x10^3/uL (4.8-10.8)
[2018-11-08 22:39] LABS: ALBUMIN 4.1 g/dL (3.2-5.5); ALBUMIN/GLOBULIN RATIO 1.3 (1.0-2.2); BILIRUBIN,TOTAL 0.9 mg/dL (0.2-1.0); CALCIUM 9.1 mg/dL (8.5-10.3); CREATININE 1.1 mg/dL (0.4-1.0); TOTAL PROTEIN 7.2 g/dL (6.7-8.2)
[2018-11-08 22:42] LABS: ABNORMAL LYMPHS % (MANUAL) 0 %
[2018-11-08 22:56] LABS: NEUTROPHILS % (MANUAL) 5 %
[2018-11-08 22:57] LABS: BAND NEUTROPHILS % (MANUAL) 1 %; LYMPHOCYTES # (MANUAL) 1.2 10^3/uL (1.5-3.5); LYMPHOCYTES % (MANUAL) 28 %; METAMYELOCYTES % (MANUAL) 5 %; MONOCYTES # (MANUAL) 2.5 10^3/uL (0.0-1.0); MYELOCYTES % (MANUAL) 3 %; PROMYELOCYTES % (MANUAL) 1 %
[2018-11-08 22:59] LABS: PLATELET ESTIMATE, MANUAL DECREASED (<130,000) (NORMAL)
[2018-11-08 23:02] LABS: DIFFERENTIAL COMMENT MANUAL DIFFERENTIAL; PLATELET MORPHOLOGY NORMAL APP (NORMAL)
[2018-11-08 23:04] LABS: NEUTROPHILS # (MANUAL) 0.3 10^3/uL (1.5-6.6)
--- NOTE | 2018-11-08 23:08 | XRAY Report ---
Reason: dyspnea Procedure Date: 11/08/2018 Accession Number: [id number] / [id number] Procedure: XR - Chest 2 View X-Ray CPT Code: 26045 FULL RESULT: EXAM: CHEST RADIOGRAPHY EXAM DATE: 11/08/2018 10:36 PM. CLINICAL HISTORY: Dyspnea. COMPARISON: CHEST 2 VIEW 10/21/2018 8:51 PM. TECHNIQUE: 2 views. FINDINGS: Lungs/Pleura: There is pulmonary vascular congestion without overt edema. Previously seen right basilar airspace opacities have resolved. There is elevation of the left hemidiaphragm. No new airspace disease. No pleural effusion or pneumothorax. Mediastinum: Heart and mediastinal contours are unremarkable. Other: None. IMPRESSION: Pulmonary vascular congestion without overt edema or focal airspace process. RADIA
[2018-11-09] MEDS ORDERED: IOVERSOL 320 100 ML VIAL IVP ONE ×2 (00:13→00:39)
--- NOTE | 2018-11-09 01:24 | CT Report ---
Reason: dyspnea, tachycardia Procedure Date: 11/09/2018 Accession Number: [id number] / [id number] Procedure: CT - Chest Angio (PE) CPT Code: FULL RESULT: EXAM: CT ANGIOGRAM CHEST EXAM DATE: 11/09/2018 12:41 AM. CLINICAL HISTORY: Dyspnea, tachycardia. COMPARISON: None. TECHNIQUE: Routine helical imaging was performed through the chest in the pulmonary arterial phase. IV Contrast: 70 mL Optiray 320. Reconstructions: Coronal 3D MIP reconstructions.Sagittal and coronal. In accordance with CT protocol optimization, one or more of the following dose reduction techniques were utilized for this exam: automated exposure control, adjustment of mA and/or KV based on patient size, or use of iterative reconstructive technique. FINDINGS: Pulmonary Arteries: Diagnostic quality: Adequate through the segmental arteries. No evidence for acute or chronic pulmonary emboli. RV/LV is within normal limits. There is no interventricular septal bowing. There is no reflux of contrast material in the IVC. Lungs/Pleura: There is elevation of the left hemidiaphragm with hypoventilatory changes at the left lung base. The lungs are otherwise clear. No pleural effusion or pneumothorax. Mediastinum: Normal. No cardiac enlargement or adenopathy. Thoracic Aorta: Unremarkable. Upper Abdomen: Unremarkable. Other: None. IMPRESSION: 1. No pulmonary embolism or acute airspace disease. RADIA
[2018-11-09] MEDS ORDERED: ACETAMINOPHEN 325 MG TABLET PO PRN (02:04)
[2018-11-09] MEDS ORDERED: SODIUM CHLORIDE FLUSH 0.9% 10 ML SYRINGE IVP PRN (02:04)
--- NOTE | 2018-11-09 02:19 | HISTORY & PHYSICAL EXAMINATION ---
Chief Complaint - Chief Complaint Chief Complaint: dyspnea History of Present Illness - Admitted From [facility] - History Obtained From Records Reviewed: yes History obtained from: patient - History of Present Illness HPI Comment/Other: Patient is an 83 y/o female with Hx of myasthenia gravis for which she takes rituximab two times a year. She presented to the ED with acute dyspnea just after eating dinner. She was still seated at the dinner table. She describes that it felt like she was not getting enough air. She denied any feeling of fatigue/ tiring out. She was admitted on 10/05/18 for dyspnea and reports that her presentation feels exactly the same. She denies any chest pain, abdominal pain, nausea, vomiting, diarrhea, fever or chills. She has been seen by Dr Navarro (oncology) for essential thrombocythemia since March 2017 and is on hydroxyurea. Her last visit was in June 2018. She missed her last appointment 3 weeks ago. Today she is found to be pancytopenic with a Hgb of 7.2. She denies dark tarry stools or blood n her stool. Her absolute neutrophil count is especially noted to be 0.3. She was also found to be tachycardic in the ED. The rest of history is unremarkable. She mainly complained of being tired and want to be left alone to sleep. History - Past Medical History Cardiovascular: reports: Atrial fibrillation, Other Respiratory: reports: Shortness of breath Neuro: reports: None Endocrine/Autoimmune: reports: HyPOthyroidism, Other (Myastenia Gravis) GI: reports: Ulcers DATA COMMUNICATIONS ANALYST: reports: None : reports: None HEENT: reports: Chronic hearing loss Psych: reports: None Musculoskeletal: reports: None Derm: reports: None MRSA Hx?: No Other Past Medical History: myasthenia gravis - Past Surgical History General: reports: Colonoscopy HEENT: reports: Tonsil/Adenoidectomy, Other - Family & Social History Family History: Father: CAD Social History [place]: [place] night by an elderly gentleman who appears to be her spouse but he is not. When asked relationship, they smile and simply states that he has a long- term friend who is visiting and is willing to stay with her as long as necessary to make sure she is well enough for him to return home. - Substance History Use: Uses substance without health or social issues: NONE - POLST Patient has POLST: Yes POLST Status: Full Code Meds/Allgy - Home Medications Home Medications: Ambulatory Orders Medication Instructions Recorded Confirmed Hydroxyurea [Hydrea] 500 mg PO SUMOTUWETHSA 04/19/13 11/08/18 Triamterene/Hydrochlorothiazid 1 cap PO DAILY 02/25/15 11/08/18 [Triamterene-Hctz 37.5-25 mg Cp] Digoxin [Lanoxin] 125 mcg PO QPM 10/05/18 11/08/18 Nitroglycerin 0.4 mg SL Q5M PRN 10/05/18 11/08/18 Thyroid,Pork [[place] Thyroid] 90 mg PO DAILY 10/05/18 11/08/18 Cyanocobalamin (Vitamin B-12) 1,000 mcg IM Q28D 10/06/18 11/08/18 [Cyanocobalamin Injection] Simpson-3 Fatty Acids/Fish Oil 1,000 mg PO DAILY 10/06/18 11/08/18 [Simpson-3 Fish Oil 1,000 mg Sfgl] - Allergies Allergies/Adverse Reactions: Allergies Allergy/AdvReac Type Severity Reaction Status Date / Time No Known Drug Allergies Allergy Verified 10/21/18 19:52 Review of Systems - Constitutional Constitutional: reports: Fatigue. denies: Fever, Chills - Eyes Eyes: denies: Pain, Blurred vision, Vision loss, Dipolpia - Ears, Nose & Throat Ears, Nose & Throat: denies: Ear pain, Nasal pain, Sore throat - Cardiovascular Cariovascular: denies: Chest pain, Edema, Syncope, Exertional dyspnea - Respiratory Respiratory: reports: SOB at rest. denies: Cough, Sputum production, Wheezing, Hemoptysis, Apnea, Pleuritic pain - Gastrointestinal Gastrointestinal: denies: Abdominal pain, Abdominal distention, Constipation, B lack stools, Bloody stools, Nausea, Vomiting - Genitourinary Genitourinary: denies: Dysuria, Frequency, Urgency, Hematuria - Musculoskeletal Musculoskeletal: denies: Back pain, Muscle aches, Stiffness, Joint pain - Integumentary Integumentary: denies: Pruritis, Lesions, Dryness - Neurological Neurological: denies: Focal weakness, Headache, Dizziness, Numbness, Memory problems - Psychiatric Psychiatric: denies: Depression, Anxiety - Endocrine Endocrine: denies: Polyuria, Polydypsia - Hematologic/Lymphatic Hematologic/Lymphatic: denies: Anemia, Bruising, Petechiae Prior Level of Functionality: She lives alone. Apparently independent of activities of daily living. Asking about family when discussing code status seems to upset her. [place] And she will rather discuss code status with family at bedside Exam - Vital Signs Reviewed Vital Signs: Yes Vital Signs: Vital Signs x48h Temp Pulse Resp BP Pulse Ox 11/09/18 02:05 37.6 C H 112 H 18 114/54 L 11/09/18 01:58 37.8 C H 109 H 28 H 106/52 L 11/09/18 01:31 122 H 18 134/58 H 96 11/08/18 23:28 122 H 24 134/60 H 97 11/08/18 23:07 119 H 17 98 11/08/18 22:40 126 H 24 142/62 H 96 11/08/18 22:38 131 H 82 L 11/08/18 21:44 128 H 21 142/63 H 96 11/08/18 21:32 37.4 C 129 H 22 88/47 L 94 - Physical Exam General Appearance: positive: Mild distress (dyspnea) Eyes Bilateral: positive: Normal inspection, PERRL, EOMI ENT: positive: ENT inspection nml Neck: positive: Nml inspection, No JVD, Trachea midline Respiratory: positive: Chest non-tender, Breath sounds nml. negative: No respiratory distress, Wheezes, Rales, Rhonchi Cardiovascular: positive: Tachycardia, Systolic murmur (3/6 blowing) Abdomen: positive: Non-tender, Nml bowel sounds, No distention. negative: Guarding, Rebound Skin: positive: Color nml, No rash, Warm Extremities: positive: Non-tender, Nml appearance, No pedal edema Neurologic/Psychiatric: positive: Oriented x3 Conclusion/Plan - Problem List (1) Dyspnea Conclusion/Plan: CT Angio chest negative for PE BNP normal. Echo on 10/05/18 showed EF of 70% Likely related to anemia Transfusing 2 units PRBC Qualifiers: Dyspnea type: unspecified Qualified Code(s): R06.00 - Dyspnea, unspecified (2) Pancytopenia Conclusion/Plan: Anemia: Etiology undetermined. Transfusing 2 units PRBCC for dyspnea Thrombocytopenia: Initially thrombocytemia. Patient was on hydroxyurea. Will hold. Neutropenia: Etiology undetermined. Will get blood cultures ?Bone marrow suppression. ?Related to rituximab Patient has been seeing Dr Navarro (oncology) for thrombocytopenia Will reach out to [facility] during the day for pancytopenia. ?Need for bone marrow biopsy (3) Paroxysmal atrial fibrillation Conclusion/Plan: On digoxin. Digoxin may contribute to thrombocytopenia However will continue for now since platelet count is 106. (4) History of myasthenia gravis Conclusion/Plan: Patient on rituximab twice a year. Last taken in August 2018 (5) Hypothyroidism Conclusion/Plan: On synthroid - Lab Results Fish Bones: 11/08/18 22:16 11/08/18 22:16 Core Measures - Anticipated LOS I expect patient to be DC'd or transferred within 96 hours.: Yes - DVT/VTE - Prophylaxis VTE/DVT Device ordered at admit?: Yes VTE/DVT Prophylaxis med ordered at admit?: No Not Ordered - Medical Reason: Contraindicated (thrombocytopenia)
[2018-11-09] MEDS: SODIUM CHLORIDE FLUSH 0.9% 10 ML SYRINGE IVP SCH ×2 (07:40→10:46)
[2018-11-09 08:26] LABS: BASOPHILS % (AUTO) 0.1 %; EOSINOPHILS % (AUTO) 0.2 %; HGB - HEMOGLOBIN 9.3 g/dL (12.0-16.0); LYMPHOCYTES % (AUTO) 17.6 %; MEAN CORPUSCULAR HEMOGLOBIN 31.1 pg (27.0-31.0); MEAN CORPUSCULAR HGB CONC 33.1 g/dL (32.0-36.0); MONOCYTES % (AUTO) 70.2 %; NEUTROPHILS % (AUTO) 11.9 %; RED BLOOD COUNT 2.98 10^6/uL (4.20-5.40); RED CELL DISTRIBUTION WIDTH 22.6 % (12.0-15.0); WHITE BLOOD COUNT 4.1 x10^3/uL (4.8-10.8)
[2018-11-09 08:27] LABS: CALCIUM 8.8 mg/dL (8.5-10.3)
[2018-11-09] MEDS ORDERED: FUROSEMIDE 40 MG/4 ML VIAL IVP ONE (08:52)
[2018-11-09] MEDS ORDERED: diltiaZEM CD 120 MG CAPSULE PO SCH (09:00)
[2018-11-09] MEDS ORDERED: POLYETHYLENE GLYCOL 3350 17 GM PACKET PO SCH (09:00)
[2018-11-09] MEDS ORDERED: THYROID 60 MG TABLET PO SCH (09:00)
[2018-11-09 10:28] LABS: MEAN PLATELET VOLUME 10.5 fL (7.9-10.8); PLT - PLATELET COUNT 88 10^3/uL (130-450)
[2018-11-09 12:16] LABS: NEUTROPHILS % (MANUAL) 14 %
[2018-11-09 12:18] LABS: BAND NEUTROPHILS % (MANUAL) 1 %; LYMPHOCYTES # (MANUAL) 2.1 10^3/uL (1.5-3.5); LYMPHOCYTES % (MANUAL) 17 %; MONOCYTES # (MANUAL) 1.4 10^3/uL (0.0-1.0); NEUTROPHILS # (MANUAL) 0.6 10^3/uL (1.5-6.6)
[2018-11-09 12:22] LABS: PLATELET ESTIMATE, MANUAL DECREASED (<130,000) (NORMAL); PLATELET MORPHOLOGY 1+ GIANT PLATELETS (NORMAL)
[2018-11-09 12:23] LABS: DIFFERENTIAL COMMENT MANUAL DIFFERENTIAL
[2018-11-09 12:25] LABS: ABNORMAL LYMPHS % (MANUAL) 14 %
--- NOTE | 2018-11-09 13:36 | Discharge Plan ---
Discharge Plan Disposition: Home, Self Care Condition: Good Prescriptions: diltiaZEM CD [Cardizem Cd] 120 mg PO DAILY #30 capsule Spironolactone [Aldactone] 12.5 mg PO DAILY #15 tablet Diet: Regular Activity Restrictions: Activity as Tolerated Shower Restrictions: No Additional Instructions or Follow Up instructions: You were admitted with symptoms of shortness of breath. Dr. Jones came to visit you and reported a history of SVT (supra-ventricular tachycardia). Since you had symptoms with your low blood levels, called anemia, you were given 2 units of blood. After reviewing your last echocardiogram from September, it was noted that you have pulmonary hypertension. The first thing that we suggest is to get a sleep study evaluation. The medical treatment for this condition is called Spironolactone, which is a very gentle diuretic that will help with abdominal type swelling and keep you breathing easy. Spironolactone has another benefit of improving the function of the left side of your heart. You were started on a medication for the potential fast heart rates called diltiazem. STOP: Digoxin Triamterene/hydrochlorathiazide Please see your PCP within one week. No Smoking: If you smoke, Please STOP! Call for help. Follow-up with: Arden Jones MD [Primary Care Provider] -
[2018-11-09 14:48] VITALS: BP 107/57
--- NOTE | 2018-11-09 18:14 | DISCHARGE SUMMARY ---
Discharge Summary Admit Date: 11/09/18 Discharge Date: 11/09/18 Discharging Provider: CRISTIANE River Primary Care Provider: Arden Jones Code Status: Do Not Attempt Resuscitation Condition at Discharge: Good Discharge Disposition: 01 Home, Self Care - DIAGNOSES Admission Diagnoses: Dyspnea, unspecified (R06.00) Other pancytopenia (D61.818) Personal history of dis of the nervous sys and sense organs (Z86.69) Hypothyroidism, unspecified (E03.9) Discharge Diagnoses with Status of Each Condition: Dyspnea, unspecified (R06.00) resolved Other pancytopenia (D61.818) improved after blood, no evidence of GI bleeding. Stools were light gross Personal history of dis of the nervous sys and sense organs (Z86.69) Myasthenia gravis, stable Hypothyroidism, unspecified (E03.9) chronic, stable Pulmonary hypertension (I27.20) chronic, medication change to promote improved EF, sleep study recommended Tachycardia (R00.0) resolved Hypertension (I10) chronic, stable Paroxysmal atrial fibrillation (I48.0) New medication, diltiazem to continue at home Encounter for blood transfusion (Z51.89) resolved, 2 units of PRBCs Thrombocythemia (D47.3) chronic, instructed to HOLD her hydroxyurea per Oncology given her recent pancytopenia - HPI History of Present Illness: HPI per Dr. Godoy: Patient is an 83 y/o female with Hx of myasthenia gravis for which she takes rituximab two times a year. She presented to the ED with acute dyspnea just after eating dinner. She was still seated at the dinner table. She describes that it felt like she was not getting enough air. She denied any feeling of fatigue/ tiring out. She was admitted on 10/05/18 for dyspnea and reports that her presentation feels exactly the same. She denies any chest pain, abdominal pain, nausea, vomiting, diarrhea, fever or chills. She has been seen by Dr Navarro (oncology) for essential thrombocythemia since March 2017 and is on hydroxyurea. Her last visit was in June 2018. She missed her last appointment 3 weeks ago. Today she is found to be pancytopenic with a Hgb of 7.2. She denies dark tarry stools or blood n her stool. Her absolute neutrophil count is especially noted to be 0.3. She was also found to be tachycardic in the ED. The rest of history is unremarkable. She mainly complained of being tired and want to be left alone to sleep. - HOSPITAL COURSE Hospital Course: She was given 2 units of blood with improvement in her H/H from 7.2/21.6, now 9.3/28.0. It was found that her platelets were low, with a possible culprit being digoxin. Digoxin & Triamterene/hydrochlorathiazide were stopped and she was started on Diltiazem with the first dose while still in the hospital. To take the place of the gentle diuretic, she was prescribed Spironolactone to appropriately treat the pulmonary hypertension noted on her last echo in September. The spironolactone is also good for improving and maintaining the ejection fraction. 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 - ALLERGIES Allergies/Adverse Reactions: Allergies Allergy/AdvReac Type Severity Reaction Status Date / Time gluten AdvReac Headache Verified 11/11/18 06:47 lactose AdvReac Cramps Verified 11/11/18 06:46 - MEDICATIONS Home Medications: Ambulatory Orders Medication Instructions Recorded Confirmed Hydroxyurea [Hydrea] 500 mg PO SUMOTUWETHSA 04/19/13 11/11/18 Nitroglycerin 0.4 mg SL Q5M PRN 10/05/18 11/11/18 Thyroid,Pork [[place] Thyroid] 90 mg PO DAILY 10/05/18 11/11/18 Cyanocobalamin (Vitamin B-12) 1,000 mcg IM Q28D 10/06/18 11/11/18 [Cyanocobalamin Injection] [place]-3 Fatty Acids/Fish Oil 1,000 mg PO DAILY 10/06/18 11/11/18 [[place]-3 Fish Oil 1,000 mg Sfgl] Albuterol Sulfate [Proair Hfa 1 puffs INH Q4H PRN 11/09/18 11/11/18 Inhaler] Fluconazole 150 mg PO .SEE INSTRUCTION 11/09/18 11/11/18 Spironolactone [Aldactone] 12.5 mg PO DAILY #15 tablet 11/09/18 11/11/18 diltiaZEM CD [Cardizem Cd] 120 mg PO DAILY #30 capsule 11/09/18 11/11/18 - PHYSICAL EXAM AT DISCHARGE General Appearance: positive: No acute distress, Alert Eyes Bilateral: positive: Normal inspection, PERRL ENT: positive: ENT inspection nml, Pharynx nml, No signs of dehydration Neck: positive: Nml inspection, Thyroid nml, No JVD, Trachea midline Respiratory: positive: Chest non-tender, No respiratory distress, Other (crackles, that cleared after IV lasix post blood tranfusion) Cardiovascular: positive: Regular rate & rhythm, No gallop, Systolic murmur Peripheral Pulses: positive: 2+ Abdomen: positive: Non-tender, No organomegaly, Nml bowel sounds Back: positive: Nml inspection Skin: positive: Color nml, No rash, Warm, Dry Extremities: positive: Non-tender, Full ROM, Nml appearance, No pedal edema Neurologic/Psychiatric: positive: Oriented x3, CN's nml (2-12), Motor nml, Sensation nml, Mood/affect nml, Weakness Reflexes: Bicep (R): 3+, Bicep (L): 3+ - LABS Result Diagrams: 11/09/18 08:15 11/09/18 08:15 - DIAGNOSTIC IMAGING Diagnostic Imaging Results: Final report reviewed Diagnostic Imaging Results Comments: EXAM: CHEST RADIOGRAPHY EXAM DATE: 11/08/2018 10:36 PM IMPRESSION: Pulmonary vascular congestion without overt edema or focal airspace process. EXAM: CT ANGIOGRAM CHEST EXAM DATE: 11/09/2018 12:41 AM IMPRESSION: 1. No pulmonary embolism or acute airspace disease. - SEPSIS Current Stage of Sepsis: Ruled out - FOLLOW UP Follow Up: Disposition: Home, Self Care Prescriptions: diltiaZEM CD [Cardizem Cd] 120 mg PO DAILY #30 capsule Spironolactone [Aldactone] 12.5 mg PO DAILY #15 tablet Additional Instructions or Follow Up instructions: You were admitted with symptoms of shortness of breath. Dr. Jones came to visit you and reported a history of SVT (supra-ventricular tachycardia). Since you had symptoms with your low blood levels, called anemia, you were given 2 units of blood. After reviewing your last echocardiogram from September, it was noted that you have pulmonary hypertension. The first thing that we suggest is to get a sleep study evaluation. The medical treatment for this condition is called Spironolactone, which is a very gentle diuretic that will help with abdominal type swelling and keep you breathing easy. Spironolactone has another benefit of improving the function of the left side of your heart. You were started on a medication for the potential fast heart rates called diltiazem. STOP: Digoxin Triamterene/hydrochlorathiazide Please see your PCP within one week. - TIME SPENT Time Spent in Discharge (Minutes): 50
[2018-11-10] MEDS ORDERED: SPIRONOLACTONE 25 MG TABLET PO SCH (09:00)
== END 2018-11-09 14:47 | disposition home or self-care (01) ==
LOC: EDUNIT# → ED 21:35 → OBS 11-09 02:04
PROVIDERS: ADMIT Internal Medicine; ATTEND Nurse Practitioner
DX: D61.818 Other pancytopenia (principal); G70.00 Myasthenia gravis without (acute) exacerbation; E03.9 Hypothyroidism, unspecified; I27.20 Pulmonary hypertension, unspecified; R00.0 Tachycardia, unspecified; I10 Essential (primary) hypertension; I48.0 Paroxysmal atrial fibrillation; D47.3 Essential (hemorrhagic) thrombocythemia
CPT/HCPCS: 36415; 36430; 71046; 71275; 80048; 80053; 83605; 83690; 83880; 84443; 84484; 85025; 86850; 86900; 86901; 86920; 87040; 93005; 96374; 99284; 99285; A9270; G0378; P9016; Q9967

== ENCOUNTER 2018-11-11 02:48 | Outpatient (CLI) | payer MEDICARE | END 2018-11-11 02:49 | disposition critical access hospital (66) | LOC: EMS 02:48 | PROVIDERS: ATTEND Surgery | DX: R06.02 Shortness of breath (principal) | CPT/HCPCS: A0425; A0429 ==

== ENCOUNTER 2018-11-11 03:04 | Observation (INO) | payer MEDICARE ==
[2018-11-11] MEDS ORDERED: ALBUTEROL NEB 2.5 MG/3 ML INH STA (03:15)
--- NOTE | 2018-11-11 03:17 | ED Physician Documentation ---
PD HPI DYSPNEA - Stated complaint Stated Complaint: SOA - Chief complaint Chief Complaint: Resp - Additional information Additional information: 83-year-old female presents the emergency department with reports of shortness of breath and difficulty breathing. The patient arrived very tachypneic and was having difficulty expressing herself and the history is limited secondary to the shortness of breath. The patient was also found to be hypoxic upon arrival. The patient denies chest pain, hemoptysis, fevers, chills. Symptoms are described as severe. No relieving factors. No triggering factors Review of Systems Unable to obtain: Other (Acuity of condition) Constitutional: denies: Fever, Chills Cardiac: denies: Chest pain / pressure, Palpitations Respiratory: reports: Dyspnea. denies: Hemoptysis PD PAST MEDICAL HISTORY - Past Medical History Cardiovascular: Atrial fibrillation, Other Respiratory: Shortness of breath Neuro: None Endocrine/Autoimmune: HyPOthyroidism GI: None SKID WRAPPER: None : None HEENT: Chronic hearing loss Psych: None Musculoskeletal: None Derm: None - Past Surgical History Past Surgical History: No General: Colonoscopy HEENT: Tonsil/Adenoidectomy, Other - Present Medications Home Medications: Ambulatory Orders Medication Instructions Recorded Confirmed Hydroxyurea [Hydrea] 500 mg PO SUMOTUWETHSA 04/19/13 11/11/18 Nitroglycerin 0.4 mg SL Q5M PRN 10/05/18 11/11/18 Thyroid,Pork [[place] Thyroid] 90 mg PO DAILY 10/05/18 11/11/18 Cyanocobalamin (Vitamin B-12) 1,000 mcg IM Q28D 10/06/18 11/11/18 [Cyanocobalamin Injection] [place]-3 Fatty Acids/Fish Oil 1,000 mg PO DAILY 10/06/18 11/11/18 [[place]-3 Fish Oil 1,000 mg Sfgl] Albuterol Sulfate [Proair Hfa 1 puffs INH Q4H PRN 11/09/18 11/11/18 Inhaler] Fluconazole 150 mg PO .SEE INSTRUCTION 11/09/18 11/11/18 Spironolactone [Aldactone] 12.5 mg PO DAILY #15 tablet 11/09/18 11/11/18 diltiaZEM CD [Cardizem Cd] 120 mg PO DAILY #30 capsule 11/09/18 11/11/18 - Allergies Allergies/Adverse Reactions: Allergies Allergy/AdvReac Type Severity Reaction Status Date / Time No Known Drug Allergies Allergy Verified 11/11/18 03:42 - Social History Does the pt smoke?: No Smoking Status: Never smoker Does the pt drink ETOH?: Yes Does the pt have substance abuse?: No - Immunizations Immunizations are current?: Yes - POLST Patient has POLST: No POLST Status: Full Code PD ED PE NORMAL - General General: Alert and oriented X 3. No: No acute distress (83-year-old female who is tachypneic and in acute distress) - HEENT HEENT: Atraumatic, PERRL, EOMI, Ears normal - Neck Neck: No JVD - Cardiac Cardiac: RRR (Tachycardia with regular rhythm), Strong equal pulses - Respiratory Respiratory: No: No respiratory distress (Tachypnea with decreased aeration) - Abdomen Abdomen: Soft, Non tender - Derm Derm: Normal color - Extremities Extremities: No deformity, No edema - Neuro Neuro: Alert and oriented X 3, Normal speech - Psych Psych: Normal mood Results - Vitals Vitals: Vital Signs - 24 hr 11/11/18 11/11/18 11/11/18 03:04 03:35 03:37 Temperature 36.5 C Heart Rate 109 H 94 95 Respiratory 22 19 18 Rate Blood Pressure 113/87 H 124/60 O2 Saturation 90 L 100 11/11/18 11/11/18 11/11/18 03:53 04:15 04:23 Temperature 36.3 C L Heart Rate 100 103 H Respiratory 19 26 H Rate Blood Pressure 124/60 123/59 L O2 Saturation 94 93 90 L 11/11/18 11/11/18 11/11/18 04:45 04:56 05:34 Temperature 36.4 C L Heart Rate 102 H 106 H 105 H Respiratory 24 28 H 25 H Rate Blood Pressure 101/49 L 101/49 L 104/57 L O2 Saturation 96 93 95 11/11/18 06:00 Temperature 36.3 C L Heart Rate 95 Respiratory 20 Rate Blood Pressure 100/51 L O2 Saturation 97 Oxygen O2 Source Nasal cannula Oxygen Flow Rate 3 - EKG (time done) 0319 Rate: Rate (enter#) Rhythm: NSR Intervals: Normal RI, QRS normal Ischemia: Non specific changes - Labs Labs: Laboratory Tests 11/11/18 11/11/18 11/11/18 03:23 03:23 03:23 WBC 6.1 RBC 3.14 L Hgb 9.8 L Hct 28.3 L MCV 90.3 MCH 31.2 H MCHC 34.6 RDW 21.6 H Plt Count 76 L MPV 8.5 Neut # (Auto) Not Reportable Lymph # (Auto) Not Reportable [place] # (Auto) Not Reportable Eos # (Auto) Not Reportable Baso # (Auto) Not Reportable Absolute Nucleated RBC Not Reportable Total Counted 100 Band Neuts % (Manual) 2 Reactive Lymphs % (Man) 18 Abnorm Lymph % (Manual) 0 Myelocytes % 2 H Blast Cells % 4 H* Nucleated RBC % Not Reportable Neutrophils # (Manual) 1.1 L Lymphocytes # (Manual) 4.0 H Monocytes # (Manual) 0.5 Eosinophils # (Manual) 0.1 Basophils # (Manual) 0.1 Differential Comment MANUAL DIFFERENTIAL Platelet Estimate DECREASED (<130,000) RBC Morph Micro Appear 1+ OVALOCYTES PT 13.7 H INR 1.2 Sodium 135 Potassium 3.3 L Chloride 99 L Carbon Dioxide 24 Anion Gap 12.0 BUN 50 H Creatinine 1.3 H Estimated GFR (MDRD) 39 L Glucose 122 H Calcium 8.7 Total Bilirubin 1.0 AST 23 ALT 19 Alkaline Phosphatase 51 Troponin I B-Natriuretic Peptide Total Protein 7.2 Albumin 4.2 Globulin 3.0 Albumin/Globulin Ratio 1.4 Lipase 47 Slides for Path Review Indicated 11/11/18 11/11/18 03:23 03:23 WBC RBC Hgb Hct MCV MCH MCHC RDW Plt Count MPV Neut # (Auto) Lymph # (Auto) [place] # (Auto) Eos # (Auto) Baso # (Auto) Absolute Nucleated RBC Total Counted Band Neuts % (Manual) Reactive Lymphs % (Man) Abnorm Lymph % (Manual) Myelocytes % Blast Cells % Nucleated RBC % Neutrophils # (Manual) Lymphocytes # (Manual) Monocytes # (Manual) Eosinophils # (Manual) Basophils # (Manual) Differential Comment Platelet Estimate RBC Morph Micro Appear PT INR Sodium Potassium Chloride Carbon Dioxide Anion Gap BUN Creatinine Estimated GFR (MDRD) Glucose Calcium Total Bilirubin AST ALT Alkaline Phosphatase Troponin I < 0.04 B-Natriuretic Peptide 31 Total Protein Albumin Globulin Albumin/Globulin Ratio Lipase Slides for Path Review - Rads (name of study) CXR Radiology: Final report received, See rad report PD MEDICAL DECISION MAKING - ED course ED course: The patient stabilized after a breathing treatment the emergency department, the patient's oxygen level dipped down to 90 on room air and the patient states that she is still short of breath and unable to get up and ambulate and is scared she will fall. The patient now is requiring supplemental oxygen and will require admission to the hospital. The patient agrees to the plan The case was discussed with the hospitalist Dr. Godoy who accepts the patient onto his service Departure - Departure Disposition: ED Place in Observation Clinical Impression: Pancytopenia, Hypoxia Dyspnea Qualifiers: Dyspnea type: unspecified Qualified Code(s): R06.00 - Dyspnea, unspecified Condition: Good
[2018-11-11 03:38] LABS: BASOPHILS % (AUTO) 0.1 %; HGB - HEMOGLOBIN 9.8 g/dL (12.0-16.0); LYMPHOCYTES % (AUTO) 25.9 %; MEAN CORPUSCULAR HEMOGLOBIN 31.2 pg (27.0-31.0); MEAN CORPUSCULAR HGB CONC 34.6 g/dL (32.0-36.0); MEAN CORPUSCULAR VOLUME 90.3 fL (81.0-99.0); MEAN PLATELET VOLUME 8.5 fL (7.9-10.8); MONOCYTES % (AUTO) 62.1 %; NEUTROPHILS % (AUTO) 10.9 %; PLT - PLATELET COUNT 76 10^3/uL (130-450); RED BLOOD COUNT 3.14 10^6/uL (4.20-5.40); RED CELL DISTRIBUTION WIDTH 21.6 % (12.0-15.0); WHITE BLOOD COUNT 6.1 x10^3/uL (4.8-10.8)
[2018-11-11 03:39] LABS: INR 1.2 (0.8-1.2); PT - PROTHROMBIN TIME 13.7 secs (9.9-12.6)
--- NOTE | 2018-11-11 03:39 | XRAY Report ---
Reason: soa Procedure Date: 11/11/2018 Accession Number: [id number] / [id number] Procedure: XR - Chest 1 View X-Ray CPT Code: 38345 FULL RESULT: EXAM: CHEST RADIOGRAPHY EXAM DATE: 11/11/2018 03:31 AM. CLINICAL HISTORY: Soa. COMPARISON: CHEST 2 VIEW 11/08/2018 10:30 PM CHEST ANGIO 11/09/2018 12:26 AM. TECHNIQUE: 1 view. FINDINGS: Lungs/Pleura: Minimal basilar atelectasis. No effusion or pneumothorax. Mediastinum: Within exam limitations, the cardiomediastinal contour is normal. Other: Stable elevation of the left diaphragm. IMPRESSION: Minimal basilar atelectasis. RADIA
[2018-11-11 03:40] LABS: ABNORMAL LYMPHS % (MANUAL) 0 %
[2018-11-11 03:45] LABS: ALBUMIN 4.2 g/dL (3.2-5.5); ALBUMIN/GLOBULIN RATIO 1.4 (1.0-2.2); CALCIUM 8.7 mg/dL (8.5-10.3); CREATININE 1.3 mg/dL (0.4-1.0); TOTAL PROTEIN 7.2 g/dL (6.7-8.2)
[2018-11-11 04:10] LABS: BAND NEUTROPHILS % (MANUAL) 2 %; BASOPHILS # (MANUAL) 0.1 10^3/uL (0-0.1); BASOPHILS % (MANUAL) 1 %; EOSINOPHILS # (MANUAL) 0.1 10^3/uL (0-0.7); LYMPHOCYTES % (MANUAL) 47 %; MONOCYTES # (MANUAL) 0.5 10^3/uL (0.0-1.0); MYELOCYTES % (MANUAL) 2 %; NEUTROPHILS # (MANUAL) 1.1 10^3/uL (1.5-6.6); NEUTROPHILS % (MANUAL) 16 %
[2018-11-11 04:17] LABS: DIFFERENTIAL COMMENT MANUAL DIFFERENTIAL; PLATELET ESTIMATE, MANUAL DECREASED (<130,000) (NORMAL)
[2018-11-11] MEDS ORDERED: MORPHINE 2 MG/ML CARPUJECT IVP STA (04:55)
[2018-11-11] MEDS ORDERED: SODIUM CHLORIDE FLUSH 0.9% 10 ML SYRINGE IVP PRN (06:08)
--- NOTE | 2018-11-11 06:48 | HISTORY & PHYSICAL EXAMINATION ---
Chief Complaint - Chief Complaint Chief Complaint: dyspnea History of Present Illness - Admitted From Admitted From:: [facility] ED - History Obtained From Records Reviewed: yes History obtained from: patient - History of Present Illness HPI Comment/Other: Patient is an 83 y/o female who presented to the ED with complain of acute dyspnea. She had just gone to sleep when she woke up suddenly unable to breath. She denied any indication of dyspnea during the day leading up to this episode. She denies chest pain, abd pain, fever or chills, nausea or vomiting. She appears very distraught during this interview. The rest of the history was unre markable. She was just discharged from the hospital 2 days prior. She reports that her presentation is the same as last time. 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 She is escorted to night by an elderly gentleman who appears to be her spouse but he is not. When asked relationship, they smile and simply states that he has a long- term friend who is visiting and is willing to stay with her as long as necessary to make sure she is well enough for him to return home. - Substance History Use: Uses substance without health or social issues: NONE - POLST Patient has POLST: No POLST Status: Full Code Meds/Allgy - Home Medications Home Medications: Ambulatory Orders Medication Instructions Recorded Confirmed Hydroxyurea [Hydrea] 500 mg PO SUMOTUWETHSA 04/19/13 11/11/18 Nitroglycerin 0.4 mg SL Q5M PRN 10/05/18 11/11/18 Thyroid,Pork [[place] Thyroid] 90 mg PO DAILY 10/05/18 11/11/18 Cyanocobalamin (Vitamin B-12) 1,000 mcg IM Q28D 10/06/18 11/11/18 [Cyanocobalamin Injection] [place]-3 Fatty Acids/Fish Oil 1,000 mg PO DAILY 10/06/18 11/11/18 [[place]-3 Fish Oil 1,000 mg Sfgl] Albuterol Sulfate [Proair Hfa 2 puffs INH Q4H PRN 11/09/18 11/11/18 Inhaler] Spironolactone [Aldactone] 12.5 mg PO DAILY #15 tablet 11/09/18 11/11/18 diltiaZEM CD [Cardizem Cd] 120 mg PO DAILY #30 capsule 11/09/18 11/11/18 - Allergies Allergies/Adverse Reactions: Allergies Allergy/AdvReac Type Severity Reaction Status Date / Time gluten AdvReac Headache Verified 11/11/18 06:47 lactose AdvReac Cramps Verified 11/11/18 06:46 Review of Systems - Constitutional Constitutional: denies: Fever, Chills - Eyes Eyes: denies: Pain, Blurred vision, Vision loss, Dipolpia - Cardiovascular Cariovascular: reports: Irregular heart rate. denies: Chest pain, Edema, Lightheadedness, Syncope - Respiratory Respiratory: denies: Cough, Wheezing, Snoring, SOB at rest - Gastrointestinal Gastrointestinal: denies: Abdominal pain, Abdominal distention, Diarrhea, Nausea, Vomiting - Genitourinary Genitourinary: denies: Dysuria, Frequency, Urgency - Integumentary Integumentary: denies: Rash, Pruritis, Lesions - Neurological Neurological: denies: General weakness, Headache, Dizziness - Psychiatric Psychiatric: denies: Depression, Delusions, Hallucinations - Endocrine Endocrine: denies: Polyuria, Polydypsia - Hematologic/Lymphatic Hematologic/Lymphatic: denies: Anemia, Bruising, Petechiae Prior Level of Functionality: She lives alone and is independent of activities of daily living. Exam - Vital Signs Reviewed Vital Signs: Yes Vital Signs: Vital Signs x48h Temp Pulse Pulse Resp BP BP Pulse Ox 11/11/18 06:44 36.7 C 99 17 123/62 96 11/11/18 06:00 36.3 C L 95 20 100/51 L 97 11/11/18 05:34 105 H 25 H 104/57 L 95 11/11/18 04:56 106 H 28 H 101/49 L 93 11/11/18 04:45 36.4 C L 102 H 24 101/49 L 96 11/11/18 04:23 90 L 11/11/18 04:15 36.3 C L 103 H 26 H 123/59 L 93 11/11/18 03:53 100 19 124/60 94 11/11/18 03:37 95 18 11/11/18 03:35 94 19 124/60 100 11/11/18 03:04 36.5 C 109 H 22 113/87 H 90 L - Physical Exam General Appearance: positive: No acute distress, Alert, Other (Patient is very emotional and appears upset) Eyes Bilateral: positive: Normal inspection, PERRL, EOMI ENT: positive: ENT inspection nml Neck: positive: Nml inspection, No JVD, Trachea midline Respiratory: positive: Chest non-tender, No respiratory distress, Breath sounds nml. negative: Wheezes, Rales, Rhonchi Cardiovascular: positive: Irregularly irregular. negative: JVD present Abdomen: positive: Non-tender, No organomegaly, Nml bowel sounds, No distention Skin: positive: Color nml, No rash, Warm, Dry Extremities: positive: Non-tender, Nml appearance, No pedal edema Neurologic/Psychiatric: positive: Oriented x3 Conclusion/Plan - Problem List (1) Dyspnea Conclusion/Plan: Work up has been largely unremarkable for any indication of a cardiac or pulmonary problem Patient has never truly been hypoxic (90%) Trying to ask more questions to get a better sense of presentation puts patient at the verge of hysteria Suspect a psychiatric component. ? Anxiety Will observe patient for recurrence of chief complain Will check O2Sat to see if truly hypoxic Will ambulate patient off oxygen to see if hypoxic If unremarkable, will consider starting an anxiolytic agent and discharging patient home. Qualifiers: Dyspnea type: unspecified Qualified Code(s): R06.00 - Dyspnea, unspecified (2) Pancytopenia Conclusion/Plan: Patient to follow up with Dr Navarro Digoxin and hydroxyurea discontinued (3) History of myasthenia gravis Conclusion/Plan: At baseline. Rituximab twice a year. Last administer in August 2018 (4) Hypothyroidism Conclusion/Plan: On synthroid - Lab Results Fish Bones: 11/11/18 03:23 11/11/18 03:23
[2018-11-11] MEDS ORDERED: LORazepam 0.5 MG TABLET PO PRN (08:27)
[2018-11-11] MEDS ORDERED: ACETAMINOPHEN 325 MG TABLET PO PRN (08:27)
[2018-11-11] MEDS ORDERED: D5.45NS W/20 MEQ KCL 1,000 ML IV SCH (09:00)
[2018-11-11] MEDS: POLYETHYLENE GLYCOL 3350 17 GM PACKET PO SCH (09:58)
[2018-11-11] MEDS: SODIUM CHLORIDE FLUSH 0.9% 10 ML SYRINGE IVP SCH ×2 (09:58→16:23)
[2018-11-11] MEDS ORDERED: LEVALBUTEROL 1.25 MG/3 ML NEB INH PRN (11:00)
[2018-11-11] MEDS: LEVALBUTEROL 1.25 MG/3 ML NEB INH SCH ×3 (14:15→19:54)
[2018-11-12] MEDS: SODIUM CHLORIDE FLUSH 0.9% 10 ML SYRINGE IVP SCH ×2 (01:09→10:55)
[2018-11-12 05:38] LABS: BASOPHILS % (AUTO) 0.2 %; HGB - HEMOGLOBIN 7.9 g/dL (12.0-16.0); LYMPHOCYTES # (AUTO) 0.7 10^3/uL (1.5-3.5); LYMPHOCYTES % (AUTO) 25.3 %; MEAN CORPUSCULAR HEMOGLOBIN 30.4 pg (27.0-31.0); MEAN CORPUSCULAR HGB CONC 32.9 g/dL (32.0-36.0); MEAN CORPUSCULAR VOLUME 92.6 fL (81.0-99.0); MEAN PLATELET VOLUME 8.1 fL (7.9-10.8); MONOCYTES # (AUTO) 1.7 10^3/uL (0.0-1.0); MONOCYTES % (AUTO) 62.6 %; NEUTROPHILS % (AUTO) 10.9 %; PLT - PLATELET COUNT 52 10^3/uL (130-450); RED CELL DISTRIBUTION WIDTH 20.7 % (12.0-15.0); WHITE BLOOD COUNT 2.6 x10^3/uL (4.8-10.8)
[2018-11-12 05:40] LABS: NEUTROPHILS # (AUTO) 0.3 10^3/uL (1.5-6.6)
[2018-11-12 05:44] LABS: ALBUMIN 3.1 g/dL (3.2-5.5); ALBUMIN/GLOBULIN RATIO 1.2 (1.0-2.2); BILIRUBIN,TOTAL 0.8 mg/dL (0.2-1.0); CALCIUM 8.4 mg/dL (8.5-10.3); CREATININE 1.1 mg/dL (0.4-1.0); MAGNESIUM 2.2 mg/dL (1.7-2.8); PHOSPHORUS 3.7 mg/dL (2.5-4.6); TOTAL PROTEIN 5.6 g/dL (6.7-8.2)
[2018-11-12 06:03] LABS: FOLATE 17.6 ng/mL (5.90 - >24.8)
[2018-11-12 06:09] LABS: PLATELET ESTIMATE, MANUAL DECREASED (<130,000) (NORMAL); PLATELET MORPHOLOGY NORMAL APPEARANCE (NORMAL)
[2018-11-12] MEDS: LEVALBUTEROL 1.25 MG/3 ML NEB INH SCH (07:12)
[2018-11-12 07:34] VITALS: BP 116/45
[2018-11-12] MEDS: POLYETHYLENE GLYCOL 3350 17 GM PACKET PO SCH (08:24)
[2018-11-12] MEDS ORDERED: SPIRONOLACTONE 25 MG TABLET PO SCH (09:00)
--- NOTE | 2018-11-12 10:31 | Discharge Plan ---
Discharge Plan Disposition: Home, Self Care Condition: Good Prescriptions: Digoxin 125 mcg PO DAILY PM #30 tablet Fluticasone/Salmeterol [Advair 250-50 Diskus] 1 each IH BID #1 blst.w.dev Montelukast [Singulair] 10 mg PO QPM #30 tablet Tiotropium [place] [Spiriva] 18 mcg IH DAILY #1 cap.w.dev Diet: Regular Activity Restrictions: Activity as Tolerated Shower Restrictions: No Additional Instructions or Follow Up instructions: You were admitted for ongoing shortness of breath. A walking oxygen test was completed, and you passed showing no need for oxygen at home. I have sent long-term inhalers to be taken everyday to treat your lungs and hopefully relieve your symptoms of breathlessness. Your labs show low platelets and low red blood cells again. I spoke with oncology/hematology today, Courtney Yen who called Dr. Navarro to review your case. A peripheral smear and a blood flow cytometry are ordered and may give us clues to the cause of this. You should plan to go for your appointment on November [address] Navarro to discuss next steps. Despite starting your new medications, Diltiazem, you heart rates continue to be elevated, so please resume your nightly digoxin as before. Please see Dr. Jones later this week. No Smoking: If you smoke, Please STOP! Call for help. Follow-up with: Arden Jones MD [Primary Care Provider] -
--- NOTE | 2018-11-12 10:42 | DISCHARGE SUMMARY ---
"Discharge Summary Admit Date: 11/11/18 Discharge Date: 11/12/18 Discharging Provider: CRISTIANE River Primary Care Provider: Dr. Jones Code Status: Attempt Resuscitation Condition at Discharge: Good Discharge Disposition: 01 Home, Self Care - DIAGNOSES Admission Diagnoses: Dyspnea, unspecified (R06.00) Other pancytopenia (D61.818) Personal history of dis of the nervous sys and sense organs (Z86.69) Hypothyroidism, unspecified (E03.9) Discharge Diagnoses with Status of Each Condition: Dyspnea (R06.00) improved, stable. Pancytopenia (D61.818) worsening per lab draw, peripheral blood smear and flow cytology is pending. Hx of myasthenia gravis (Z86.69) chronic, stable. Hypothyroidism (E03.9) chronic, stable. CKD (chronic kidney disease) stage 3, GFR 30-59 ml/min (N18.3) chronic, stable. Creatinine 1.1. Thrombocytopenia (D69.6) new, platelets now 52, advised to stop aspirin. Anemia (D64.9) ongoing, 2 units of PRBCs on 11/08/18. Paroxysmal atrial fibrillation (I48.0) chronic, stable, continue diltiazem and digoxin at night. Anxiety (F41.9) stable. CHRIS (obstructive sleep apnea) (G47.33) chronic, stable. - HPI History of Present Illness: HPI: Edited from Dr. Godoy: Raissa Crespo is an 83 y/o female who presented to the ED with complaints of acute dyspnea. She had just gone to sleep when she woke up suddenly unable to breath. She denied any indication of dyspnea during t he day leading up to this episode. She denies chest pain, abd pain, fever or chills, nausea or vomiting. She appeared very distraught during the initial interview with the admitting provider. The rest of the history was unremarkable. She was just discharged from the hospital 2 days prior. She reports that her presentation is the same as last time. - CONSULTS | PROCEDURES Consultations: Oncology-Dr. Navarro - HOSPITAL COURSE Hospital Course: The patient was monitored on telemetry, which noted that for much of her stay, she remained tachycardic, so her digoxin was resumed to be taken in the PM as before. She was not found to have pneumonia, fluid overload or any other reasons for shortness of breath. Prior to discharge, she had a reduction in her H/H from 9.8/28.3 down to 7.9/24.1 and a platelet drop from 76, now 52. I personally walked over to Oncology to discuss this case with Dr. Navarro who was called by Courtney Yen. Advised to order both a peripheral blood smear and a peripheral blood cytology to rule out leukemia. The blood values my have been influenced by her getting IV fluids until late last night, but certainly these values are concerning. On her physical exam, she had no evidence of bleeding, had scattered bruising related to her blood draws and IVs, but otherwise unremarkable. She denies blood gums, or bleeding any where else. An occult stool was ordered, but due to the patient's mental state and anxiety, she was not able to provide a sample for testing. She had a male friend with her who asked several questions, and wanted to ensure they would get to the bottom of this blood disorder. I reminded the 2 of them of her upcoming oncology appointment on November [address] Navarro, and they planned to visit Dr. Jones by this . I offered Palliative care services, which they were appreciative, but this will need to be ordered by PCP. The patient was medically stable at the time of discharge, and did not require oxygen. I explained to them about treating her symptoms with long acting inhalers given her lung disorder of CHRIS, which were waiting at the pharmacy. They quickly left prior to the time the nurse was finished with her teaching, so the discharge packet will be delivered to Dr. Jones. - ALLERGIES Allergies/Adverse Reactions: Allergies Allergy/AdvReac Type Severity Reaction Status Date / Time gluten AdvReac Headache Verified 11/11/18 06:47 lactose AdvReac Cramps Verified 11/11/18 06:46 - MEDICATIONS Home Medications: Ambulatory Orders Medication Instructions Recorded Confirmed Nitroglycerin 0.4 mg SL Q5M PRN 10/05/18 11/11/18 Thyroid,Pork [[place] Thyroid] 90 mg PO DAILY 10/05/18 11/11/18 Cyanocobalamin (Vitamin B-12) 1,000 mcg IM Q28D 10/06/18 11/11/18 [Cyanocobalamin Injection] [place]-3 Fatty Acids/Fish Oil 1,000 mg PO DAILY 10/06/18 11/11/18 [[place]-3 Fish Oil 1,000 mg Sfgl] Albuterol Sulfate [Proair Hfa 2 puffs INH Q4H PRN 11/09/18 11/11/18 Inhaler] Spironolactone [Aldactone] 12.5 mg PO DAILY #15 tablet 11/09/18 11/11/18 diltiaZEM CD [Cardizem Cd] 120 mg PO DAILY #30 capsule 11/09/18 11/11/18 Digoxin 125 mcg PO DAILY PM #30 tablet 11/12/18 Fluticasone/Salmeterol [Advair 1 each IH BID #1 blst.w.dev 11/12/18 250-50 Diskus] Montelukast [Singulair] 10 mg PO QPM #30 tablet 11/12/18 Tiotropium [place] [Spiriva] 18 mcg IH DAILY #1 cap.w.dev 11/12/18 - PHYSICAL EXAM AT DISCHARGE General Appearance: positive: No acute distress, Alert, Anxious Eyes Bilateral: positive: PERRL ENT: positive: Pharynx nml, No signs of dehydration Neck: positive: Thyroid nml, No JVD Respiratory: positive: Chest non-tender, No respiratory distress, Breath sounds nml Cardiovascular: positive: Regular rate & rhythm, No gallop, Tachycardia, Systolic murmur Peripheral Pulses: positive: 2+ Abdomen: positive: Non-tender, Nml bowel sounds Back: positive: Nml inspection Skin: positive: No rash, Warm, Dry, Pallor Extremities: positive: Non-tender, Full ROM, Nml appearance, Pedal edema Neurologic/Psychiatric: positive: Oriented x3, CN's nml (2-12), Motor nml, Sensation nml, Sensory loss, Depressed mood/affect Reflexes: Bicep (R): 3+, Bicep (L): 3+ - LABS Result Diagrams: 11/12/18 05:11 11/12/18 05:11 - DIAGNOSTIC IMAGING Diagnostic Imaging Results: Final report reviewed Diagnostic Imaging Results Comments: EXAM: CHEST RADIOGRAPHY EXAM DATE: 11/11/2018 03:31 AM IMPRESSION: Minimal basilar atelectasis. - FOLLOW UP Follow Up: Disposition: Home, Self Care Prescriptions: Digoxin 125 mcg PO DAILY PM #30 tablet Fluticasone/Salmeterol [Advair 250-50 Diskus] 1 each IH BID #1 blst.w.dev Montelukast [Singulair] 10 mg PO QPM #30 tablet Tiotropium [place] [Spiriva] 18 mcg IH DAILY #1 cap.w.dev Additional Instructions or Follow Up instructions: You were admitted for ongoing shortness of breath. A walking oxygen test was completed, and you passed showing no need for oxygen at home. I have sent detention inhalers to be taken everyday to treat your lungs and hopefully relieve your symptoms of breathlessness. Your labs show low platelets and low red blood cells again. I spoke with oncology/hematology today, Courtney Yen who called Dr. Navarro to review your case . A peripheral smear and a blood flow cytometry are ordered and may give us clues to the cause of this. You should plan to go for your appointment on November [address] Navarro to discuss next steps. Despite starting your new medications, Diltiazem, you heart rates continue to be elevated, so please resume your nightly digoxin as before. Please see Dr. Jones later this week. - TIME SPENT Time Spent in Discharge (Minutes): 50"
[2018-11-12] MEDS ORDERED: diltiaZEM CD 120 MG CAPSULE PO SCH (12:00)
== END 2018-11-12 11:00 | disposition home or self-care (01) ==
LOC: EDUNIT# → ED 03:04 → OBS 06:08
PROVIDERS: ADMIT Internal Medicine; ATTEND Nurse Practitioner
DX: R06.00 Dyspnea, unspecified (principal); D61.818 Other pancytopenia; G70.00 Myasthenia gravis without (acute) exacerbation; E03.9 Hypothyroidism, unspecified; N18.3 Chronic kidney disease, stage 3 (moderate); D69.6 Thrombocytopenia, unspecified; I48.0 Paroxysmal atrial fibrillation; F41.9 Anxiety disorder, unspecified; G47.33 Obstructive sleep apnea (adult) (pediatric)
CPT/HCPCS: 36415; 71045; 80053; 82607; 82746; 83540; 83690; 83735; 83880; 84100; 84466; 84484; 85025; 85610; 93005; 94640; 96365; 96366; 96375; 97161; 99285; A9270; G0378; 82272; 96374

== ENCOUNTER 2018-11-14 15:11 | Outpatient (CLI) | payer MEDICARE | END 2018-11-14 15:12 | disposition critical access hospital (66) | LOC: EMS 15:11 | PROVIDERS: ATTEND Surgery | DX: R06.02 Shortness of breath (principal) | CPT/HCPCS: A0425; A0429 ==

== ENCOUNTER 2018-11-14 15:28 | Emergency (ER) | payer MEDICARE ==
[2018-11-14] MEDS ORDERED: ACETAMINOPHEN 325 MG TABLET PO STA (16:13)
[2018-11-14 16:14] LABS: BASOPHILS % (AUTO) 0.2 %; EOSINOPHILS % (AUTO) 0.5 %; HGB - HEMOGLOBIN 9.7 g/dL (12.0-16.0); LYMPHOCYTES % (AUTO) 15.7 %; MEAN CORPUSCULAR HEMOGLOBIN 31.1 pg (27.0-31.0); MEAN CORPUSCULAR HGB CONC 34.3 g/dL (32.0-36.0); MEAN CORPUSCULAR VOLUME 90.9 fL (81.0-99.0); MEAN PLATELET VOLUME 8.4 fL (7.9-10.8); MONOCYTES % (AUTO) 71.5 %; NEUTROPHILS % (AUTO) 12.1 %; PLT - PLATELET COUNT 48 10^3/uL (130-450); RED BLOOD COUNT 3.13 10^6/uL (4.20-5.40); RED CELL DISTRIBUTION WIDTH 20.5 % (12.0-15.0); WHITE BLOOD COUNT 4.2 x10^3/uL (4.8-10.8)
--- NOTE | 2018-11-14 16:17 | ED Physician Documentation ---
PD HPI DYSPNEA - Stated complaint Stated Complaint: SOA - Chief complaint Chief Complaint: Resp - History obtained from History obtained from: Patient, Friend - History of Present Illness Timing - onset: Today (This is an 83-year-old woman whose recent problems with dyspnea found due to a combination I think of pulmonary hypertension and pancytopenia of unclear etiology although it sounds like leukemia is on the differential. She has been admitted twice recently and had a couple of transfusions. She became more short of breath this afternoon while at rest which responded to oxygen. It sounds like she is wanted oxygen but did not fit criteria for same. She denies any chest pain or pedal edema with this. There is no cough. She feels better now on my evaluation.) Review of Systems Ten Systems: 10 systems reviewed and negative Constitutional: denies: Fever, Chills Nose: reports: Reviewed and negative Cardiac: reports: Reviewed and negative Respiratory: reports: Dyspnea. denies: Cough, Hemoptysis, Wheezing PD PAST MEDICAL HISTORY - Past Medical History Cardiovascular: Atrial fibrillation, Other Respiratory: Shortness of breath Neuro: None Endocrine/Autoimmune: HyPOthyroidism GI: None FRONT OFFICE SPEC: None : None HEENT: Chronic hearing loss Psych: None Musculoskeletal: None Derm: None - Past Surgical History Past Surgical History: No General: Colonoscopy HEENT: Tonsil/Adenoidectomy, Other - Present Medications Home Medications: Ambulatory Orders Medication Instructions Recorded Confirmed RX: Nitroglycerin 0.4 mg SL Q5M PRN 10/05/18 11/11/18 RX: Thyroid,Pork [[place] Thyroid] 90 mg PO DAILY 10/05/18 11/11/18 RX: Cyanocobalamin (Vitamin B-12) 1,000 mcg IM Q28D 10/06/18 11/11/18 [Cyanocobalamin Injection] RX: [place]-3 Fatty Acids/Fish Oil 1,000 mg PO DAILY 10/06/18 11/11/18 [[place]-3 Fish Oil 1,000 mg Sfgl] RX: Albuterol Sulfate [Proair Hfa 2 puffs INH Q4H PRN 11/09/18 11/11/18 Inhaler] RX: Spironolactone [Aldactone] 12.5 mg PO DAILY #15 tablet 11/09/18 11/11/18 RX: diltiaZEM CD [Cardizem Cd] 120 mg PO DAILY #30 capsule 11/09/18 11/11/18 Fluticasone/Salmeterol [Advair 1 each IH BID #1 blst.w.dev 11/12/18 250-50 Diskus] Montelukast [Singulair] 10 mg PO QPM #30 tablet 11/12/18 RX: Digoxin 125 mcg PO DAILY PM #30 tablet 11/12/18 Tiotropium [place] [Spiriva] 18 mcg IH DAILY #1 cap.w.dev 11/12/18 - Allergies Allergies/Adverse Reactions: Allergies Allergy/AdvReac Type Severity Reaction Status Date / Time gluten AdvReac Headache Verified 11/11/18 06:47 lactose AdvReac Cramps Verified 11/14/18 15:37 - Social History Does the pt smoke?: No Smoking Status: Never smoker Does the pt drink ETOH?: Yes Does the pt have substance abuse?: No - Immunizations Immunizations are current?: Yes - POLST Patient has POLST: No POLST Status: Full Code PD ED PE NORMAL - Vitals Vital signs reviewed: Yes - General General: Alert and oriented X 3, No acute distress - HEENT HEENT: PERRL, EOMI - Neck Neck: Supple, no meningeal sign, No bony TTP - Cardiac Cardiac: RRR, Other (2 out of 6 decrescendo systolic murmur heard best at the left sternal border) - Respiratory Respiratory: No respiratory distress, Clear bilaterally - Abdomen Abdomen: Normal bowel sounds, Soft, Non tender - Back Back: No CVA TTP, No spinal TTP - Derm Derm: Normal color, Warm and dry - Extremities Extremities: No edema, No calf tenderness / cord - Neuro Neuro: Alert and oriented X 3, Normal speech Results - Vitals Vitals: Vital Signs - 24 hr 11/14/18 11/14/18 15:29 17:59 Temperature 36.3 C L Heart Rate 115 H 103 H Respiratory 18 18 Rate Blood Pressure 150/81 H 142/77 H O2 Saturation 92 96 Oxygen O2 Source Room air Oxygen Flow Rate 2 - Labs Labs: Laboratory Tests 11/14/18 11/14/18 11/14/18 15:57 15:57 15:57 WBC 4.2 L RBC 3.13 L Hgb 9.7 L Hct 28.4 L MCV 90.9 MCH 31.1 H MCHC 34.3 RDW 20.5 H Plt Count 48 L MPV 8.4 Neut # (Auto) Not Reportable Lymph # (Auto) Not Reportable [place] # (Auto) Not Reportable Eos # (Auto) Not Reportable Baso # (Auto) Not Reportable Absolute Nucleated RBC Not Reportable Total Counted 100 Band Neuts % (Manual) 0 Reactive Lymphs % (Man) 3 Abnorm Lymph % (Manual) 0 Metamyelocytes % 5 H Myelocytes % 9 H Promyelocytes % 13 H Nucleated RBC % Not Reportable Neutrophils # (Manual) 0.5 L* Lymphocytes # (Manual) 1.3 L Monocytes # (Manual) 1.3 H Eosinophils # (Manual) 0.0 Basophils # (Manual) 0.0 Differential Comment MANUAL DIFFERENTIAL Manual Slide Review Indicated WBC Morphology 1+ SMUDGE CELLS Platelet Estimate DECREASED (<130,000) Platelet Morphology NORMAL APPEARANCE RBC Morph Micro Appear 1+ SCHISTOCYTES Sodium 137 Potassium 4.2 Chloride 101 Carbon Dioxide 24 Anion Gap 12.0 BUN 33 H Creatinine 1.0 Estimated GFR (MDRD) 53 L Glucose 103 H Calcium 9.1 Total Bilirubin 0.9 AST 27 ALT 20 Alkaline Phosphatase 64 Troponin I < 0.04 Total Protein 6.9 Albumin 4.2 Globulin 2.7 Albumin/Globulin Ratio 1.6 Lipase 54 H Blood Type Antibody Screen 11/14/18 16:28 WBC RBC Hgb Hct MCV MCH MCHC RDW Plt Count MPV Neut # (Auto) Lymph # (Auto) Dew[place] # (Auto) Eos # (Auto) Baso # (Auto) Absolute Nucleated RBC Total Counted Band Neuts % (Manual) Reactive Lymphs % (Man) Abnorm Lymph % (Manual) Metamyelocytes % Myelocytes % Promyelocytes % Nucleated RBC % Neutrophils # (Manual) Lymphocytes # (Manual) Monocytes # (Manual) Eosinophils # (Manual) Basophils # (Manual) Differential Comment Manual Slide Review WBC Morphology Platelet Estimate Platelet Morphology RBC Morph Micro Appear Sodium Potassium Chloride Carbon Dioxide Anion Gap BUN Creatinine Estimated GFR (MDRD) Glucose Calcium Total Bilirubin AST ALT Alkaline Phosphatase Troponin I Total Protein Albumin Globulin Albumin/Globulin Ratio Lipase Blood Type A POSITIVE Antibody Screen NEGATIVE PD MEDICAL DECISION MAKING - ED course ED course: This is an 83-year-old woman with recurrent dyspnea due to pancytopenia. At this point she does not need oxygen or transfusion. However they very much wanted oxygen at home and were willing to pay out of pocket for this. They understand that based on recent workup they do not fit Medicare criteria for payment for oxygen but symptomatically makes her feel better. With the respiratory therapist see her and we arranged for her to have home oxygen, but she understands that they will have to pay for it. Departure - Departure Disposition: 01 Home, Self Care Clinical Impression: Shortness of breath, Pancytopenia Condition: Stable Record reviewed to determine appropriate education?: Yes Comments: Follow-up with Dr. ruff and the oncologist as scheduled. Return for new or worsening symptoms. Discharge Date/Time: 11/14/18 18:26
[2018-11-14 16:18] LABS: ABNORMAL LYMPHS % (MANUAL) 0 %; BAND NEUTROPHILS % (MANUAL) 0 %
[2018-11-14 16:19] LABS: ALBUMIN 4.2 g/dL (3.2-5.5); ALBUMIN/GLOBULIN RATIO 1.6 (1.0-2.2); BILIRUBIN,TOTAL 0.9 mg/dL (0.2-1.0); CALCIUM 9.1 mg/dL (8.5-10.3); TOTAL PROTEIN 6.9 g/dL (6.7-8.2)
--- NOTE | 2018-11-14 16:34 | XRAY Report ---
Reason: Chest Pain Procedure Date: 11/14/2018 Accession Number: [id number] / [id number] Procedure: XR - Chest 1 View X-Ray CPT Code: 90281 FULL RESULT: EXAM: CHEST RADIOGRAPHY EXAM DATE: 11/14/2018 04:10 PM. CLINICAL HISTORY: Chest Pain. COMPARISON: CHEST 1 VIEW 11/11/2018 3:17 AM. TECHNIQUE: 1 view. FINDINGS: Lungs/Pleura: No focal opacities evident. No pleural effusion. No pneumothorax. Mediastinum: There is cardiomegaly. There is thoracic aortic calcification. Other: None. IMPRESSION: No acute intrathoracic plain film abnormality. RADIA
[2018-11-14 16:55] LABS: LYMPHOCYTES # (MANUAL) 1.3 10^3/uL (1.5-3.5); LYMPHOCYTES % (MANUAL) 27 %; METAMYELOCYTES % (MANUAL) 5 %; MONOCYTES # (MANUAL) 1.3 10^3/uL (0.0-1.0); MYELOCYTES % (MANUAL) 9 %; NEUTROPHILS % (MANUAL) 12 %; PROMYELOCYTES % (MANUAL) 13 %
[2018-11-14 16:58] LABS: PLATELET ESTIMATE, MANUAL DECREASED (<130,000) (NORMAL); PLATELET MORPHOLOGY NORMAL APPEARANCE (NORMAL)
[2018-11-14 16:59] LABS: DIFFERENTIAL COMMENT MANUAL DIFFERENTIAL
[2018-11-14 18:00] VITALS: BP 142/77
[2018-11-14 22:40] LABS: NEUTROPHILS # (MANUAL) 0.5 10^3/uL (1.5-6.6)
== END 2018-11-14 18:26 | disposition home or self-care (01) ==
LOC: EDUNIT# → ED 15:28
DX: R06.02 Shortness of breath (principal); D61.818 Other pancytopenia; E03.9 Hypothyroidism, unspecified; R00.0 Tachycardia, unspecified
CPT/HCPCS: 36415; 71045; 80053; 83690; 84484; 85025; 86850; 86900; 86901; 93005; 99283

== ENCOUNTER 2018-12-21 08:00 | Outpatient (CLI) | payer MEDICARE ==
[2018-12-21 15:50] LABS: EOSINOPHILS % (AUTO) 0.2 %; LYMPHOCYTES % (AUTO) 4.6 %; MEAN CORPUSCULAR HEMOGLOBIN 30.2 pg (27.0-31.0); MEAN CORPUSCULAR HGB CONC 34.7 g/dL (32.0-36.0); MEAN CORPUSCULAR VOLUME 86.8 fL (81.0-99.0); MEAN PLATELET VOLUME 6.6 fL (7.9-10.8); MONOCYTES % (AUTO) 74.9 %; NEUTROPHILS % (AUTO) 20.3 %; RED BLOOD COUNT 1.63 10^6/uL (4.20-5.40); WHITE BLOOD COUNT 6.9 x10^3/uL (4.8-10.8)
[2018-12-21 15:51] LABS: HGB - HEMOGLOBIN 4.9 g/dL (12.0-16.0); PLT - PLATELET COUNT 23 10^3/uL (130-450)
[2018-12-21 15:53] LABS: BAND NEUTROPHILS % (MANUAL) 0 %
[2018-12-21 17:07] LABS: ABNORMAL LYMPHS % (MANUAL) 26 %; LYMPHOCYTES % (MANUAL) 46 %; MONOCYTES # (MANUAL) 0.1 10^3/uL (0.0-1.0); MYELOCYTES % (MANUAL) 1 %; NEUTROPHILS # (MANUAL) 1.5 10^3/uL (1.5-6.6); NEUTROPHILS % (MANUAL) 22 %; PROMYELOCYTES % (MANUAL) 3 %
[2018-12-21 17:08] LABS: PLATELET MORPHOLOGY NORMAL APPEARANCE (NORMAL)
[2018-12-21 17:09] LABS: DIFFERENTIAL COMMENT MANUAL DIFFERENTIAL; PLATELET ESTIMATE, MANUAL DECREASED (<130,000) (NORMAL)
== END 2018-12-21 23:59 | disposition home or self-care (01) ==
LOC: LAB.R 08:00
PROVIDERS: ATTEND Family Medicine
DX: D64.9 Anemia, unspecified (principal)
CPT/HCPCS: 85025